=== PATIENT | female | born 1960 | race Caucasian/White ===

== ENCOUNTER 2016-05-22 10:38 | Day surgery (SDC) | payer BC ==
[~2016-05-22 10:38] MED LIST: Buffered Lidocaine 1% SYR 3ML* 3 ML/SYR SYRINGE INTRADERM ONE; Famotidine IV* 10 MG/ML 2 ML (20 mg) IV ONE; Levalbuterol 0.63MG/3ML NEB INH ONE
[2016-05-22] MEDS ORDERED: Levalbuterol 1.25MG/0.5ML NEB ONE ×2 (10:57→14:47)
[2016-05-22] MEDS ORDERED: Famotidine IV* 10 MG/ML 2 ML (20 mg) ONE (10:57)
[2016-05-22] MEDS ORDERED: Dexamethasone IV* 4 MG/ML 1 ML (4 MG) ONE (11:58)
[2016-05-22] MEDS ORDERED: Cisatracurium* 2 MG/ML MDV 10 ML ONE (11:58)
[2016-05-22] MEDS ORDERED: fentaNYL* 50 MCG/ML 2 ML VIAL (100 MCG VIAL) ONE (11:58)
[2016-05-22] MEDS ORDERED: Ondansetron INJ* 2 MG/ML VIAL ONE (11:58)
[2016-05-22] MEDS ORDERED: Lidocaine 2% MPF* 2 ML VIAL ONE (11:58)
[2016-05-22] MEDS ORDERED: Propofol* 10 MG/ML 20 ML BTL IV PUSH ONE (11:58)
[2016-05-22] MEDS ORDERED: Midazolam* 1 MG/ML 5 ML VIAL (5 MG) ONE (11:59)
[2016-05-22] MEDS ORDERED: KETAMINE HCL* 50 MG/ML 10 ML VIAL ONE (11:59)
[2016-05-22] MEDS ORDERED: Phenylephrine IV* 40 MCG/ML 10 ML SYRINGE ONE (14:05)
[2016-05-22] MEDS ORDERED: oxyCODONE/Acetamin 5/325 MG* TAB PO PRN (14:45)
[2016-05-22] MEDS ORDERED: fentaNYL* 50 MCG/ML 2 ML VIAL (100 MCG VIAL) IV PRN (14:45)
[2016-05-22] MEDS ORDERED: Levalbuterol 0.63MG/3ML NEB INH PRN (14:45)
[2016-05-22] MEDS ORDERED: Ondansetron INJ* 2 MG/ML VIAL IV PRN (14:45)
[2016-05-22 15:38] VITALS: BP 111/69
--- NOTE | 2016-05-23 03:11 | PRO ---
DATE: 05/22/16 - [facility] REFERRING PHYSICIANS: Yvon Chavez; Jae Jones* PROCEDURE: Upper gastrointestinal endoscopy and balloon dilation of esophagus at strictures, midpoints 29 and 20 cm. HISTORY: This 56-year-old woman has been noting recurring difficulty with solid foods over the last month or 2. Last night, she was able to have ravioli and characteristically for breakfast, she has cereal. She ate no lunch yesterday saying that they had friends that they were entertaining. She has a history of a right lung resection superior and middle lobes and then on the left side had radiation at [facility]. 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 Following that, Dr Venegas has dilated her approximately 6 times with balloons, most recently late December 2015. The interval had been lengthening. His reports were reviewed immediately before the case. ENDOSCOPIST: Teja Fountain MD MEDICATIONS: General anesthesia per Dr. Melendez. FINDINGS: She is a chronically ill-appearing woman, in no overt distress at this time. She is positioned left side down after general anesthesia was induced. EGD: Larynx - limited views showed no overt inflammation, but she was intubated. Esophagus - easily entered and the upper sphincter at 14 to 15 appeared unremarkable. There was no overt stricture there and no mass. First abnormality was encountered about 18 or 19 and there was then a stricture with a minimal amount of neovascularization extending down to about 23. The scope, however, passed through this area snugly easily. There was then a second area appearing strictured with neovascularity from 28 to 31 or 32. The esophagus was then normal down to 39 or 40. There was not an overt stricture at the EG junction. There were no erosions. Stomach - generally normal contours and mucosa and rugal folds. There was some erythema diffusely in the cardia and fundus. There were no erosions and no bleeding. The antrum appeared normal. Duodenum - the pylorus, bulb, and second through fourth portions appear normal with Clara's gland nodules. The scope was then brought back to the EG junction and a lsedmjn-tie-ddius dilator inserted 12 to 15 mm. This was used at the EG junction because of some uncertainty about the visual assessment there. Three inflations to 15 mm resulted in no overt stretching. Scope was then pulled back to 29 where again 3 inflations resulted in no overt stretching, although this area clearly had radiation changes. Finally at 20 cm, the 12 to 15 balloon was inflated and the 15 level did create a small split at a 2 o'clock and 5 o'clock orientation. There is no overt bleeding. The scope was then repositioned into the stomach and a 15 to 18 mm dilator inserted. Inflations at the EG junction 16.5 and 18 resulted in no rents as the area appeared normal. Pulling back to the 29 cm level at 16.5mm inflation did result in a mild split as desired. Pulling back to the 20 to 21 cm level was done and this balloon inflated to 15 mm with no change in the previous split achieved. Inflation to 16.5 was then done and the split was extended slightly but appearing as desired. The patient tolerated this well. IMPRESSION: 1. Proximal gastric erythema - presumably from radiation. 2. Esophageal stricturing at 2 levels dilated at 16.5 and dysphagia should be palliated. Strictures were not that tight at baseline in that the scope could be passed and only the proximal stricture at 21 was split with a 15 mm dilation. The patient will be having a complete upper dental extraction in about a month and she was warned that this may change her ability to monitor mastication. Her was listening carefully as this was discussed and the point made several times as it is indeed somewhat remarkable that she has not presented to the emergency room with an esophageal impaction at this point. Given the successful lengthening of intervals over the last several dilating sessions, it was suggested she return to the office in November for reevaluation. [id number]/[facility] #: [id number] PAM
== END 2016-05-22 17:00 | disposition home or self-care (01) ==
LOC: OR 10:38
PROVIDERS: ATTEND Internal Medicine Gastroenterology
DX: K22.2 Esophageal obstruction (principal); R13.10 Dysphagia, unspecified; C34.90 Malignant neoplasm of unspecified part of unspecified bronchus or lung; F17.210 Nicotine dependence, cigarettes, uncomplicated
CPT/HCPCS: A9270-GY; J1100; J2250; J2405; J2704; J3010

== ENCOUNTER 2016-11-06 10:55 | Day surgery (SDC) | payer BC ==
[2016-11-06] MEDS ORDERED: Buffered Lidocaine 0.9% SYRIN* 5 ML/SYR SYRINGE ONE (10:59)
[2016-11-06] MEDS ORDERED: fentaNYL* 50 MCG/ML 2 ML VIAL (100 MCG VIAL) ONE ×2 (12:18→13:29)
[2016-11-06] MEDS ORDERED: Midazolam* 1 MG/ML 5 ML VIAL (5 MG) ONE (12:18)
[2016-11-06] MEDS ORDERED: Lidocaine 2% PF * 5 ML VIAL ONE (12:23)
[2016-11-06] MEDS ORDERED: Dexamethasone IV* 4 MG/ML 1 ML (4 MG) ONE (12:23)
[2016-11-06] MEDS ORDERED: DiMENhydriNATE IV* 50 MG/ML VIAL ONE (12:23)
[2016-11-06] MEDS ORDERED: Ondansetron INJ* 2 MG/ML VIAL ONE (12:23)
[2016-11-06] MEDS ORDERED: Propofol* 10 MG/ML 20 ML BTL IV PUSH ONE (12:23)
[2016-11-06] MEDS ORDERED: Succinylcholine* 20 MG/ML 10 ML VIAL ONE (12:23)
[2016-11-06] MEDS ORDERED: Phenylephrine IV* 40 MCG/ML 10 ML SYRINGE ONE (13:26)
[2016-11-06] MEDS ORDERED: DiMENhydriNATE IV* 50 MG/ML VIAL IV PUSH PRN (13:55)
[2016-11-06] MEDS ORDERED: HYDROcodone/ACETAMIN 5-325 MG* 1 TAB PO PRN (13:55)
[2016-11-06 14:45] VITALS: BP 116/85
--- NOTE | 2016-11-07 16:16 | PRO ---
DATE: 11/06/16 REFERRING PHYSICIANS: Martínez Cisneros ([place], [place]). PROCEDURE: Upper gastrointestinal endoscopy and balloon dilation of esophagus at 2 levels - 21 and 29 cm. INDICATION: This 56-year-old woman has had relapsing solid food dysphagia after intense radiation t reatment to the chest. After her last dilation, she was much better. She had all of her teeth extracted and now has dentur es. She says they work moderately well and she does use them for meals. There was no abrupt change in her eating status with that, but about a month ago she began having trouble once again with meat s, bread, etc. Her appetite is good and weight steady. She did just have a biopsy along her right jaw. Informed consent was obtained with her present. The rationale for continuing on with dilati ons was reviewed. She has a follow up with Dr. Jones in about a month. ENDOSCOPIST: Dr. Fountain. TRIGONOMETRY TUTOR: Radha Delcid MD. FINDINGS: She is a chronically ill-appearing woman of average b nadeen weight. Her lungs show rales at the left lung base, but she is not short of breath and air excu rsion is just slightly diminished. EGD: The patient was placed under anesthesia by Dr. Delcid. Larynx - intubated. Esophagus - easily entered and radiation defined vascular changes and patchy scarring and blanching are seen, especially at around 21 to 22.5, and then 28.5 to 31. Other areas do have some mild jensen ges. There is some radiation vascular change at the EG junction at about 39 to 40, though there is no stricture there. There are no peptic changes. Stomach - generalized erythema, especially in the prepyloric antrum, no ulcer seen. There is some sp lotchy, wispy bleeding. Duodenum - the pylorus is patent and the proximal bulb normal. The distal bulb has a coarse and linda thematous texture and the second to third portion is deformed and a little bit stiff. It seems to b e a change compared to the prior exam. The fourth portion of the duodenum appears normal. The scope was then brought back to about the 35 cm level and a 15 to 18 balloon dilator was threaded into the lumen. It was inflated at the 29 cm level to 15 mm diameter, creating a slight spilt. Th e inflation was then made 4 atmospheres, estimated at 16 mm and the split was slightly extended and appeared optimal for the desired effect. The balloon was then withdrawn to the upper esophageal location and inflated to 15 with no effect, 1 6.5 with a mild split, and then to an estimated 17 mm with slight extension. The patient tolerated all of this well. IMPRESSION: 1. Prepyloric gastritis. 2. Deformed duodenum, no symptoms relevant to this. 3. Esophageal strictures - now dilated slightly more and a routine followup will be anticipated in June 2017. [id number]/[facility] #: [id number]
== END 2016-11-06 15:00 | disposition home or self-care (01) ==
LOC: OR 10:55
PROVIDERS: ATTEND Internal Medicine Gastroenterology
PROC: 0D728ZZ Dilation of Middle Esophagus, Via Natural or Artificial Opening Endoscopic (ICD-10-PCS; principal; 2016-11-06 12:15)
DX: K22.2 Esophageal obstruction (principal); R13.10 Dysphagia, unspecified; K29.60 Other gastritis without bleeding; Z85.118 Personal history of other malignant neoplasm of bronchus and lung; F17.200 Nicotine dependence, unspecified, uncomplicated
CPT/HCPCS: J0330; J1100; J1240; J2250; J2405; J2704; J3010

== ENCOUNTER 2017-04-30 10:20 | Day surgery (SDC) | payer MEDICARE, BC ==
[~2017-04-30 10:20] MED LIST changes: +Buffered Lidocaine 0.9% SYRIN* 5 ML/SYR SYRINGE INTRADERM ONE; -Buffered Lidocaine 1% SYR 3ML* 3 ML/SYR SYRINGE INTRADERM ONE; -Levalbuterol 0.63MG/3ML NEB INH ONE; +Levalbuterol 0.63MG/3ML NEB* UNIT OF USE INH ONE; +Metoclopramide TAB* 10 MG PO ONE
[2017-04-30] MEDS ORDERED: Famotidine IV* 10 MG/ML 2 ML (20 mg) ONE (10:28)
[2017-04-30] MEDS ORDERED: Metoclopramide TAB* 10 MG ONE (10:28)
[2017-04-30] MEDS ORDERED: Levalbuterol 1.25MG/0.5ML NEB ONE (10:28)
[2017-04-30] MEDS ORDERED: Buffered Lidocaine 0.9% SYRIN* 5 ML/SYR SYRINGE ONE (10:29)
[2017-04-30] MEDS ORDERED: Propofol* 10 MG/ML 20 ML BTL IV PUSH ONE (11:29)
[2017-04-30] MEDS ORDERED: fentaNYL* 50 MCG/ML 2 ML VIAL (100 MCG VIAL) ONE (11:29)
[2017-04-30] MEDS ORDERED: Mivacurium Chloride* 20 MG/10 ML VIAL IV ONE (11:29)
[2017-04-30] MEDS ORDERED: KETAMINE HCL* 50 MG/ML 10 ML VIAL ONE (11:29)
[2017-04-30] MEDS ORDERED: Midazolam* 1 MG/ML 10 ML VIAL (10 MG) ONE (11:29)
[2017-04-30] MEDS ORDERED: Lidocaine 2% PF * 5 ML VIAL ONE (11:29)
[2017-04-30] MEDS ORDERED: Dexamethasone IV* 4 MG/ML 1 ML (4 MG) ONE (11:29)
[2017-04-30] MEDS ORDERED: Ondansetron INJ* 2 MG/ML VIAL ONE (11:29)
[2017-04-30] MEDS ORDERED: Ondansetron INJ* 2 MG/ML VIAL IV PRN (12:07)
[2017-04-30] MEDS ORDERED: Levalbuterol 0.63MG/3ML NEB* UNIT OF USE INH PRN (12:07)
[2017-04-30] MEDS ORDERED: fentaNYL* 50 MCG/ML 2 ML VIAL (100 MCG VIAL) IV PRN (12:07)
[2017-04-30] MEDS ORDERED: Atropine 1MG/ML INJ* 1 ML VIAL ONE (12:52)
[2017-04-30 14:29] VITALS: BP 104/72
--- NOTE | 2017-04-30 23:11 | PRO ---
DATE: 04/30/17 [facility] REFERRING PRACTITIONER: SANDRA Vogt, [place], [place] * PROCEDURE: Upper gastrointestinal endoscopy and balloon dilation 3 locations with TTS balloon. INDICATION: This 57-year-old woman with a history of lung cancer, treated with radiation, about a month ago began experiencing dysphagia again. She had converted from marginal dentition to dentures within the last year. She has maintained her weight. Outpatient meds include ibuprofen, Lortab, meloxicam, and ropinirole. There are no cardiac meds. Informed consent was obtained with an opportunity for questions, special concerns, and her was present. ENDOSCOPIST: Dr. Fountain. ANESTHESIOLOGIST: Dr. Melendez after endotracheal intubation. FINDINGS: She is a slender, somewhat chronically ill-appearing woman in no overt distress. Her heart rate is regular without murmur and breath sounds normal in the upper lobes. EGD: Larynx - ET tube in place. Esophagus - easily entered and the mucosa has some minimal scarring in neovascularity, but is patent and the diagnostic scope goes through easily with no sense of restriction whatsoever. The lumen appears clearly fairly sizeable. Some scarring is evident especially from about 28 to 30. The lower esophagus has a little bit of neovascularity, but there is no stenosis and no erosions. Stomach - generally normal mucosa in the cardia, fundus, body, and antrum. Duodenum - normal pylorus, bulb and second and third portion. The scope was brought back to the fundus and a 5-cm 15 to 18-mm TTS balloon inserted. It was then inflated to 16.5 and 18 at the EG junction 37 to 38. No mucosal split was created. Inflations were then done at 29 to 30, initially 15 mm with no dilating effect and then 16.5 (4.5 atmospheres) and with the larger diameter about 15 seconds into the inflation, bradycardia to about 30 occurred. The balloon was deflated and the bradycardia lasted 15 to 20 seconds. It was prompt resumption of a pulse of 75 to 80. Another inflation at that same level to the same extent was done as there had been some mucosal split achieved and it was desired to get a full benefit. Again, there was some bradycardia, but this time just down to about 40. The initial dilation was about 20 to 25 seconds. The scope was brought back to 20 to 21 cm and an inflation done to 15 and then 16.5. No rent occurred there, although there was the impression of a mild dilating effect. The scope was brought back down into the stomach and the inflation repeated at the 30 cm level. At this time, bradycardia only went down to about 65. There was no madie bleeding with the final dilation. IMPRESSION: 1. Esophageal stricture - dilated with effect at 29 to 30 cm appearing c/w prior result 2. Bradycardia - experienced for the first time today. The patient is on no cardiac meds. It is felt this is a self-limited vasovagal response. [id number]/[facility] #: [id number] [facility]
== END 2017-04-30 14:10 | disposition home or self-care (01) ==
LOC: OR 10:20
PROVIDERS: ATTEND Internal Medicine Gastroenterology
DX: K22.2 Esophageal obstruction (principal); R00.1 Bradycardia, unspecified; R13.10 Dysphagia, unspecified; K21.9 Gastro-esophageal reflux disease without esophagitis; I42.9 Cardiomyopathy, unspecified; I07.1 Rheumatic tricuspid insufficiency; C34.10 Malignant neoplasm of upper lobe, unspecified bronchus or lung; Z72.0 Tobacco use; Z88.1 Allergy status to other antibiotic agents
CPT/HCPCS: A9270-GY; J0461; J1100; J2250; J2405; J2704; J3010

== ENCOUNTER 2017-11-23 10:21 | Day surgery (SDC) | payer MEDICARE, BC ==
[~2017-11-23 10:21] MED LIST changes: -Famotidine IV* 10 MG/ML 2 ML (20 mg) IV ONE; -Levalbuterol 0.63MG/3ML NEB* UNIT OF USE INH ONE; -Metoclopramide TAB* 10 MG PO ONE
[2017-11-23] MEDS ORDERED: Atracurium* 10 MG/ML 10 ML VIAL ONE (12:36)
[2017-11-23] MEDS ORDERED: Midazolam* 1 MG/ML 5 ML VIAL (5 MG) ONE (12:36)
[2017-11-23] MEDS ORDERED: fentaNYL* 50 MCG/ML 2 ML VIAL (100 MCG VIAL) ONE (12:36)
[2017-11-23] MEDS ORDERED: Propofol* 10 MG/ML 20 ML BTL IV PUSH ONE (12:36)
[2017-11-23] MEDS ORDERED: EPHEDrine (Pressors)* 50 MG/ML VIAL ONE (13:43)
[2017-11-23] MEDS ORDERED: Phenylephrine IV* 40 MCG/ML 10 ML SYRINGE ONE (13:43)
[2017-11-23] MEDS ORDERED: Glycopyrrolate IV* 0.2 MG/ML 1 ML VIAL ONE (13:47)
[2017-11-23] MEDS ORDERED: Neostigmine Methylsulfate* 1 MG/ML 10 ML VIAL (1 mg/ml) ONE (13:47)
[2017-11-23] MEDS ORDERED: fentaNYL* 50 MCG/ML 2 ML VIAL (100 MCG VIAL) IV PRN (13:57)
[2017-11-23] MEDS ORDERED: Ondansetron INJ* 2 MG/ML VIAL IV PRN (13:57)
[2017-11-23] MEDS ORDERED: Naloxone* 0.4 MG/ML 1 ML VIAL IV PRN (13:57)
[2017-11-23 14:20] VITALS: BP 112/61
--- NOTE | 2017-11-24 07:42 | PRO ---
DATE: 11/23/17 - ENDO REFERRING PHYSICIANS: Dr. Jae Jones; SANDRA Duenas, [place], [place] * PROCEDURE: Upper gastrointestinal endoscopy and balloon dilation, multi-level esophageal narrowing - procedure limited by extreme bradycardia during dilation at the 23 to 24 cm insertion level. INDICATION: This 57-year-old woman comes in complaining of increasing dysphagia. When she was seen for pre-anesthetic assessment, no dizziness or palpitations or syncope was elicited. She was noted to have lost 10 to 12 pounds of weight and had a chest x-ray, labs, and saw her primary oncologist and no obvious progression of tumor or other process was found. She was cleared to go for anesthesia assistance for dilation. ENDOSCOPIST: Dr. Fountain. ANESTHESIOLOGIST: Dr. Caceres. ANESTHESIA: ET tube and general anesthesia. FINDINGS: She is a chronically ill-appearing woman, smelling strongly of tobacco. She is thin. Breath sounds were diminished, but present bilaterally. EGD: Larynx - symmetric with ET tube in place. Esophagus - easily traversed top to bottom with a little bit of viscous resistance, but the scope does not create any dilation anywhere. The EG junction is at 40. Stomach - generally normal folds in the cardia, fundus and body. The antrum was quite erythematous to the punctate erythema. There are no erosions and no bleeding. The pylorus appears normal. Duodenum - the bulb appears normal, but at the apex, there is moderate erythema of Clara's folds. Raymond of the duodenum appears restricted and fair amount of probing and maneuvering was required to get into the second and then third portions of the duodenum. No obvious mass is present, but the area does seem restricted especially right at the bulb apex. The esophageal dilator was then inserted at 15 to 18-mm size. Esophageal dilations - at 38 to 40 cm, 15-mm created no split, so a 16.5 was chosen and this likewise created no split. At 28 to 29 cm, 15-mm created slight split about triangulated around the lumen. At 23 to 24, a 15-mm inflation resulted in asystole and so it was stopped at about 12 seconds. After a couple of minutes, position just a centimeter to higher similar inflation also resulted in marked bradycardia. There were some splits seen that were fairly substantial at about 22 cm. A final dilation straddling the cricopharyngeus at 19 to 20 cm did not result in any bradycardia nor any mucosal split. IMPRESSION: 1. Duodenal restriction and Clara's gland hypertrophy. 2. Gastritis. 3. Esophageal stricture - in the [id number]-[id number] esophagus - dilated to 15-mm, which was the limit of bradycardia. Lumen is not occluded and well-chewed mechanically soft diet should be able to traverse. 4. Bradycardia - marked and this is a limiting factor in her esophageal treatment. 5. Weight loss - cause unclear, but heavy smoking on an ongoing basis contributes in all likelihood. [id number]/[facility] #: [id number] [facility]PITALMack
== END 2017-11-23 14:46 | disposition home or self-care (01) ==
LOC: OR 10:21
PROVIDERS: ATTEND Internal Medicine Gastroenterology
DX: K22.2 Esophageal obstruction (principal); R00.1 Bradycardia, unspecified; R13.10 Dysphagia, unspecified; K29.60 Other gastritis without bleeding; R63.4 Abnormal weight loss; K31.5 Obstruction of duodenum; Z72.0 Tobacco use; J44.9 Chronic obstructive pulmonary disease, unspecified; I73.9 Peripheral vascular disease, unspecified; I42.5 Other restrictive cardiomyopathy; Z85.118 Personal history of other malignant neoplasm of bronchus and lung; M19.90 Unspecified osteoarthritis, unspecified site; R00.2 Palpitations; R94.31 Abnormal electrocardiogram [ECG] [EKG]
CPT/HCPCS: J2250; J2704; J2710; J3010

== ENCOUNTER → 2018-05-17 11:15 | Day surgery (SDC) | payer MEDICARE, BC ==
[~2018-05-17 11:15] MED LIST changes: +Atracurium* 10 MG/ML 10 ML VIAL ONE; +Lactated Ringers 1000 ML Bag* 1,000 ML IV SCH; +Lidocaine 2% PF * 5 ML VIAL ONE; +Midazolam* 1 MG/ML 2 ML VIAL (2 MG) ONE; +Naloxone* 0.4 MG/ML 1 ML VIAL IV PRN; +Ondansetron INJ* 2 MG/ML VIAL IV PRN; +Phenylephrine INJ* 10 MG/ML 1 ML VIAL (10 MG) ONE; +Propofol* 10 MG/ML 20 ML BTL ONE; +fentaNYL* 50 MCG/ML 2 ML VIAL (100 MCG VIAL) IV PRN; +fentaNYL* 50 MCG/ML 2 ML VIAL (100 MCG VIAL) ONE
[2018-05-17 16:08] VITALS: BP 103/71
--- NOTE | 2018-05-17 21:02 | PRO ---
DATE: 05/17/18 [facility] REFERRING PRACTITIONER: Martínez Joel, PA , [place], [place] * PROCEDURE: Upper gastrointestinal endoscopy and Savary dilation of esophageal stricture, 11 through 14 mm. INDICATION: This 58-year-old woman treated for lung cancer has a post- treatment stricture in the mid esophagus. She has undergone a sequence of dilations approximately every 6 months. About a year ago during dilation with a balloon, she had profound bradycardia and then 6 months ago essentially asystole for over 10 seconds. This had been discussed with her cardiology office and no bradycardia had ever been documented in her past history in other circumstances including many Holter monitors. A trial off of digoxin this past fall caused increased sensation of tachycardia. If further events were to occur, holding her diltiazem prior to endoscopic procedures is a consideration. This was not employed today as there was going to be a different technique for dilation. ENDOSCOPIST: Dr. Fountain. ANESTHESIA: Dr. Taylor. FINDINGS: The patient was positioned left side down. She was intubated. EGD: Larynx - tube in place. Esophagus - easily entered and there was a scarred and somewhat pale esophagus, though the scope transited easily to the EG junction at 40. There was no hang- up of the scope. Stomach - some punctate erythema. The antrum was normal. Duodenum - generally normal. A Savary wire was placed into the distal gastric body and kept in place during scope withdrawal. An 11-mm Savary was then passed over the wire. There was no clear resistance. There was some surface tension and adhesion between the wire and the dilator during withdrawal. An endoscopic recheck showed a minimal amount of blood at about 27 to 28 cm. There was no overt split. The wire was still in place. A 12.8 Savary was then placed. There was an increase in the amount of bleeding superficially from the mucosa with multiple small areas of slight intramucosal hemorrhage, but again no definitive split. A third dilation to 14 mm was done. This likewise resulted in a stepwise increase in the amount of bleeding and intramucosal blood seen. No bradycardia was observed. Procedure was terminated. IMPRESSION: 1. Esophageal stricture - now dilated to 14 mm with Savary dilators ( progressed less than anticipated) 2. History of bradycardia - not evident today. [id number]/[facility] #: [id number] [facility]
== END | disposition home or self-care (01) ==
LOC: OR 11:15
PROVIDERS: ATTEND Internal Medicine Gastroenterology
DX: K22.2 Esophageal obstruction (principal); R13.10 Dysphagia, unspecified; R00.1 Bradycardia, unspecified; I48.91 Unspecified atrial fibrillation; J44.9 Chronic obstructive pulmonary disease, unspecified
CPT/HCPCS: J2250; J2704; J3010

== ENCOUNTER → 2019-02-01 11:29 | Day surgery (SDC) | payer MEDICARE, BC ==
[~2019-02-01 11:29] MED LIST changes: -Atracurium* 10 MG/ML 10 ML VIAL ONE; -Buffered Lidocaine 0.9% SYRIN* 5 ML/SYR SYRINGE INTRADERM ONE; +Buffered Lidocaine 1% SYRIN* 1 ML/SYRINGE INTRADERM ONE; +KETAMINE HCL* 50 MG/ML 10 ML VIAL ONE; +Levalbuterol 1.25MG/0.5ML NEB ONE; -Lidocaine 2% PF * 5 ML VIAL ONE; +Midazolam* 1 MG/ML 5 ML VIAL (5 MG) ONE; -Naloxone* 0.4 MG/ML 1 ML VIAL IV PRN; -Ondansetron INJ* 2 MG/ML VIAL IV PRN; -Phenylephrine INJ* 10 MG/ML 1 ML VIAL (10 MG) ONE; -fentaNYL* 50 MCG/ML 2 ML VIAL (100 MCG VIAL) IV PRN
[2019-02-01 16:26] VITALS: BP 125/69
--- NOTE | 2019-02-01 21:49 | PRO ---
DATE: 02/01/19 [facility] REFERRING PRACTITIONERS: DAVID Duenas , Jae Jones* PROCEDURE: Upper gastrointestinal endoscopy and Savary dilation to 14 mm. INDICATION: This 58-year-old woman treated for lung cancer and known to have a mid to high esophageal stricture has had increasing trouble with pills and food. Last week, she was started on amoxicillin and prednisone for respiratory symptoms she has regularly. On a day-by-day basis, she has had improvement or malaise or improvement once again and today was feeling reasonably well. She was not in any overt distress. It was elected to proceed with monitored anesthesia care. ENDOSCOPIST: Teja Fountain MD. ANESTHESIOLOGIST: Dr. Rosario. FINDINGS: She is a chronically ill-appearing woman with somewhat indurated neck , though without any focal mass. Breath sounds are diminished. She had used her inhaler this morning. She is positioned at 45 degrees and ketamine, Versed, and propofol were administered as per Dr. Rosario. The adult scope was inserted and the patient intubated. EGD: Larynx - not seen. Esophagus - easily entered and there was smooth stricture seemingly maximal for 24 or 26 as noted before. There was no focal shelf or ring. There was no mass. The scope passed through easily. EG junction was not focally strictured. Stomach - moderate erythema throughout. There was no blood. Duodenum - the pylorus and bulb appeared normal. There were focal swollen erythematous folds. The second portion of the duodenum was entered. There was some restriction and in that position, the third portion of the duodenum was seen tangentially, but not freely entered. There did appear to be some restriction. The Savary wire was placed on the gastric antrum. Dilations with 12.8 and then 14 was done. Small splits were seen in the 25 to 26 cm area. There was some question of using a higher dilator or a balloon, though the patient was seemingly more congested and it was elected to stop at this time as this was the level reached in May 2018. IMPRESSION: 1. Esophageal stricture - dilated to 14 mm Savary. 2. Gastric erythema - moderately intense. 3. Duodenal restriction. 4. Bradycardia - during the 14-mm Savary dilation, some slowing down to 60 and then a sinus pause occurred, but there was no prolonged severe bradycardia. 5. COPD - currently exacerbated from apparent upper respiratory infection. [id number]/[facility] #: [id number] MTDD
== END | disposition home or self-care (01) ==
LOC: OR 11:29
PROVIDERS: ATTEND Internal Medicine Gastroenterology
DX: K22.2 Esophageal obstruction (principal); J44.9 Chronic obstructive pulmonary disease, unspecified; I10 Essential (primary) hypertension; R00.0 Tachycardia, unspecified; R13.10 Dysphagia, unspecified; R94.31 Abnormal electrocardiogram [ECG] [EKG]; R06.00 Dyspnea, unspecified; I42.9 Cardiomyopathy, unspecified; I73.9 Peripheral vascular disease, unspecified; F17.210 Nicotine dependence, cigarettes, uncomplicated; Z79.899 Other long term (current) drug therapy
CPT/HCPCS: A9270-GY; J2250; J2704; J3010

== ENCOUNTER 2019-06-13 15:21 | Observation (INO) | payer MEDICARE, BC ==
[2019-06-13] MEDS ORDERED: Lidocaine 1% MPF ** 5 ML VIAL INJ ONE (15:36)
[2019-06-13] MEDS ORDERED: NS 0.9% 1000 ML** 1,000 ML IV ONE (15:36)
--- NOTE | 2019-06-13 15:55 | ED ---
Shortness of Breath - HPI Summary HPI Summary: The patient is a 59 year-old female presenting to [facility] with a chief complaint of shortness of breath and lung pain this afternoon. She reports that she was upstairs having a biopsy performed on a left lung mass. An hour after the procedure, she noted shortness of breath and lung pain with a CXR reading of moderate left pneumothorax. She is noted to have 30% lung capacity on the right with history of lung adenocarcinoma with radiation therapy and chemotherapy. She was referred to the ED for further treatment. She was placed on 15L O2 with improvement in her breathing. She endorses a cough, which aggravates the pain. Past medical history significant for anemia, angina, cardiomegaly, coronary artery disease, hypotension, peripheral vascular disease, leaky valve, SVT, tricuspid regurgitation, asthma, COPD, PNA season allergies, sleep apnea, GERD. Current smoker, daily EtOH, marijuana use. Medications reviewed. Allergies noted. - History of Current Complaint Chief Complaint: EDShortnessOfBreath Time Seen by Provider: 06/13/19 15:30 Hx Obtained From: Patient Onset/Duration: Gradual Onset, Still Present Current Severity: Moderate Dyspnea At: Rest Aggravating Factors: Deep Breaths, Other - cough Associated Signs & Symptoms: Cough (Nonproductive), Chest Pain Unrelated to Cough - "lung pain" - Allergy/Home Medications Allergies/Adverse Reactions: Allergies Allergy/AdvReac Type Severity Reaction Status Date / Time Sulfa (Sulfonamide Allergy Severe Hives Verified 06/13/19 15:27 Antibiotics) loxapine AdvReac Severe Rash And Verified 06/13/19 15:27 Itching SEASONAL Allergy Intermediate ITCHY, Uncoded 06/13/19 15:27 ALLERGIES/ENVIRONMENTAL WATERY EYES, SNEEZING, CONGESTION Home Medications: Home Medications Azithromycin TAB* [Zithromax TAB (Z-JUSTIN) 250 mg #6 tabs] 2 tab PO .TODAY, THEN 1 DAILY 06/13/19 [History Confirmed 06/13/19] Digoxin TAB* [Lanoxin TAB*] 0.25 mg PO EVERY OTHER DAY 06/13/19 [History Confirmed 06/13/19] Diltiazem TAB* [Cardizem 30 MG Tab*] 30 mg PO BID 06/13/19 [History Confirmed ] LoraTADine TAB(NF) [Claritin 10 MG TAB(NF)] 10 mg PO DAILY PRN 06/13/19 [ History Confirmed 06/13/19] Nystatin SUSPENSION* 500,000 units PO DAILY 06/13/19 [History Confirmed 06/13/19 ] Ropinirole TAB* [Requip TAB*] 0.25 mg PO BEDTIME 06/13/19 [History Confirmed 08/27] Zolpidem TAB* [Ambien TAB*] 5 - 10 mg PO BEDTIME PRN 06/13/19 [History Confirmed 06/13/19] guaiFENesin ER TAB [Mucinex*] 600 mg PO BID PRN 06/13/19 [History Confirmed 08/27] PMH/Surg Hx/FS Hx/Imm Hx Endocrine/Hematology History: Reports: Hx Anemia - occassionally Denies: Hx Anticoagulant Therapy, Hx Diabetes, Hx Thyroid Disease Cardiovascular History: Reports: Hx Angina, Hx Cardiomegaly, Hx Coronary Artery Disease, Hx Hypotension, Hx Peripheral Vascular Disease, Hx Syncope, Hx Valvular Heart Disease - has leaky valve, has SVT, Other Cardiovascular Problems /Disorders - CARDIOMYPATHY, TRICUSPID REGUR. LOW BP//DR. STILES FOLLOWS Denies: Hx Hypercholesterolemia, Hx Hypertension, Hx Myocardial Infarction, Hx Pacemaker/ICD Respiratory History: Reports: Hx Asthma, Hx Chronic Bronchitis, Hx Chronic Obstructive Pulmonary Disease (COPD), Hx Lung Cancer, Hx Pneumonia, Hx Seasonal Allergies, Hx Sleep Apnea - NO MACHINE, Other Respiratory Problems/Disorders - O2 at home GI History: Reports: Hx Gastroesophageal Reflux Disease - REPORTS HAD SURGERY FOR, Hx Hiatal Hernia - HX OF-, Other GI Disorders - ESOPHAGEAL STRETCHES DUE TO DAMAGE FROM RADIATION History: Denies: Hx Dialysis, Hx Renal Disease, Other Problems/Disorders Musculoskeletal History: Reports: Hx Arthritis - BACK, NECK AND SHOULDERS, Hx Back Problems, Hx Bursitis, Hx Tendonitis - SHOULDERS, Other Musculoskeletal History - BONE SPURS IN NECK AND BACK Sensory History: Reports: Hx Contacts or Glasses - glasses, Other Sensory Impairments - Upper Dentures Denies: Hx Cataracts, Hx Glaucoma, Hx Hearing Aid Opthamlomology History: Reports: Hx Contacts or Glasses - glasses, Other Sensory Impairments - Upper Dentures Denies: Hx Cataracts, Hx Glaucoma Neurological History: Reports: Hx Headaches, Other Neuro Impairments/Disorders - PAIN CLINIC PT-[facility] Denies: Hx Dementia, Hx Seizures Psychiatric History: Reports: Hx Anxiety - HX OF, Hx Depression, Other Psychiatric Issues/Disorders - panic attacks Denies: Hx Panic Disorder, Hx Substance Abuse - Cancer History Cancer Type, Location and Year: LUNG Hx Chemotherapy: Yes - LAST 2015 Hx Radiation Therapy: Yes - 2009 & 2010,2014 - Surgical History Surgical History: Yes Surgery Procedure, Year, and Place[place] [facility] [place] MIDDLE [place] [facility] [place] [facility] [place] [facility] [place]. [place] [facility] [place] Oophorect[place]. TONSILLECTOMY A CHILD. stomach surgery for gerd . 06/2014 [place] [facility] [place] FEEDING TU[place] [facility] [place]. [id number] SEVERAL ESOPHAGEAL STRETCHING WITH B[place]OON [place]IT[place] [facility] [place]. [place]OP[place]AL ST[place] AND LATER [place] [facility] [place] GA[place] F[place] [facility] [place] Anesthesia Reactions: Yes - SLOWED HEART RATE-HAPPENED SURING PROCEDURE WITH POLLO Infectious Disease History: No Infectious Disease History: Denies: Hx Hepatitis, Hx Human Immunodeficiency Virus (HIV), Traveled Outside the [place] in Last 30 Days - Family History Known Family History: Positive: Cardiac Disease - Social History Alcohol Use: Daily Alcohol Amount: 3 glasses a day Hx Substance Use: Yes Substance Use Type: Reports: Marijuana Substance Use Comment - Amount & Last Used: 06/11/2019 Hx Tobacco Use: Yes Smoking Status (MU): Current Every Day Smoker Type: Cigarettes Amount Used/How Often: 1 PPD Length of Time of Smoking/Using Tobacco: 41 YEARS Have You Smoked in the Last Year: Yes Review of Systems Positive: Chest Pain - "lung pain" Positive: Shortness Of Breath, Cough All Other Systems Reviewed And Are Negative: Yes Physical Exam - Summary Physical Exam Summary: Constitutional: Well-developed, Well-nourished, Alert. (+) Mild respiratory distress Skin: Warm, Dry HENT: Normocephalic; Atraumatic Eyes: Conjunctiva normal Neck: Musculoskeletal ROM normal neck. (-) JVD, (-) Stridor, (-) Tracheal deviation Cardio: Rhythm regular, rate tachycardic, Heart sounds normal; Intact distal pulses; The pedal pulses are 2+ and symmetric. Radial pulses are 2+ and symmetric. (-) Murmur Pulmonary/Chest wall: Slightly decreased breath sounds in the left lung. (+) Mild respiratory distress, (-) Wheezes, (-) Rales Abd: Soft, (-) tenderness, (-) Distension, (-) Guarding, (-) Rebound Musculoskeletal: (-) Edema Lymph: (-) Cervical adenopathy Neuro: Alert, Oriented x3 Psych: Mood and affect Normal Triage Information Reviewed: Yes Vital Signs On Initial Exam: Initial Vitals BP 148/115 06/13/19 15:24 Vital Signs Reviewed: Yes Procedures - Procedure Summary Procedure Summary: Dr. Henriquez from surgery placed a percutaneous catheter for indicated left-sided pneumothorax. - Sedation Patient Received Moderate/Deep Sedation with Procedure: No Diagnostics - Vital Signs Vital Signs Temp Pulse Resp BP Pulse Ox 06/13/19 15:31 25 06/13/19 15:28 127 92 06/13/19 15:25 100 F 126 14 148/115 93 06/13/19 15:24 148/115 - Laboratory Result Diagrams: 06/13/19 15:28 06/13/19 15:28 Lab Statement: Any lab studies that have been ordered have been reviewed, and results considered in the medical decision making process. - Radiology CXR Radiology Interpretation Completed By: Radiologist Summary of Radiographic Findings: Impression: The left lung is mostly reexpanded after a pleural pigtail catheter placement. ED physician has reviewed this report. Re-Evaluation - Re-Evaluation First Eval Re-Evaluation Time: 16:30 Change: Improved Comment: Percutaneous catheter placement performed by surgery, patient improving Course/Dx - Course Course Of Treatment: Patient is a 59 year-old female who has extensive cardiac/ pulmonary and lung adenocarcinoma history presenting with shortness of breath and lung pain after having a biopsy performed on a left lung mass this afternoon, and documented moderate pneumothorax on CXR. Physical exam is significant for slightly decreased breath sounds in the left lung, tachycardic rate with normal rhythm, and mild respiratory distress. I spoke with Dr. Henriquez from surgery, who will come to the ED. Patient administered fluids, Lidocaine, and Fentanyl. Dr. Henriquez placed a percutaneous catheter for indicated left-sided pneumothorax. Blood work obtained, revealing MCV of 108, MCH of 38, BUN of 5. CXR reveals re-expansion of the left lung following procedure. Dr. Henriquez has accepted the patient for admission. Patient agreeable with plan. - Diagnoses Provider Diagnoses: Pneumothorax, left - Physician Notifications Discussed Care of Patient With: Bertha Henriquez - surgery Time Discussed With Above Provider: 15:35 Instructed by Provider To: Other - I discussed the patient's case with Dr. Henriquez, and she will come see the patient in the ED. She will place the catheter. Dr. Henriquez accepts the patient for admission. Discharge ED - Sign-Out/Discharge Documenting (check all that apply): Patient Departure - Patient accepted for admission by Dr. Henriquez. - Discharge Plan Condition: Stable Disposition: ADMITTED TO [facility] Referrals: Session Martínez HERNANDEZ [Primary Care Provider] - - Attestation Statements Document Initiated by Scribe: Yes Documenting Scribe: Samira Lyle Provider For Whom Guadalupeibe is Documenting (Include Credential): Dr. Kam Milligan DO Scribe Attestation: ISamira scribed for Dr. Kam Milligan DO on 06/13/19 at 1701. Status of Scribe Document: Ready
[2019-06-13 16:19] LABS: INR 0.92 (0.82-1.09)
[2019-06-13 16:21] LABS: ABS Eosinophils 0.1 10^3/ul (0-0.6); ABS Lymphocytes 1.5 10^3/ul (1.0-4.8); ABS Monocytes 0.6 10^3/ul (0-0.8); Eosinophil % 1.3 %; Hematocrit 48 % (35-47); Hemoglobin 16.6 g/dL (12.0-16.0); Lymphocyte % 20.6 %; Mean Corpuscular HGB Conc 35 g/dL (31-36); Mean Corpuscular Hemoglobin 38 pg (27-31); Mean Corpuscular Volume 108 fL (80-97); Mean Platelet Volume 7.3 fL (7.4-10.4); Nucleated Red Blood Cells % 0.1; Platelet Count 219 10^3/uL (150-450); Red Blood Count 4.43 10^6 /uL (3.70-4.87); Red Cell Distribution Width 13 % (10-15); White Blood Count 7.1 10^3/uL (3.5-10.8)
[2019-06-13 16:23] LABS: Albumin 4.3 g/dL (3.2-5.2); Albumin/Globulin Ratio 1.5 (1-3); BUN/Creatinine Ratio 8.8 (8-20); Calcium 9.4 mg/dL (8.6-10.3); EGFR African American 132.3 (>60); EGFR Non-African American 109.3 (>60); Globulin 2.9 g/dL (2-4); Potassium 3.6 mmol/L (3.5-5.0); Total Bilirubin 0.8 mg/dL (0.2-1.0); Total Protein 7.2 g/dL (6.4-8.9)
[2019-06-13] MEDS ORDERED: Ondansetron INJ* 2 MG/ML VIAL IV PRN (16:27)
[2019-06-13] MEDS ORDERED: Polyethylene Glycol 3350* 17 GM PACKET PO PRN (16:48)
[2019-06-13] MEDS ORDERED: Zolpidem TAB* 5 MG PO PRN (16:48)
[2019-06-13] MEDS ORDERED: Cetirizine* 10 MG TAB PO PRN (16:48)
[2019-06-13] MEDS ORDERED: HYDROcodone/ACET. 7.5/325 LIQ* 15 ML UDC PO PRN (16:48)
[2019-06-13] MEDS ORDERED: guaiFENesin ER TAB 600 MG PO PRN (16:48)
[2019-06-13] MEDS ORDERED: Albuterol HFA INHALER* 8 gm MDI INH PRN (16:48)
[2019-06-13] MEDS ORDERED: Azithromycin TAB* 250 MG PO SCH (17:00)
[2019-06-13] MEDS ORDERED: Nicotine Lozenge* mini 2 MG LOZNG.MINI MT PRN (17:15)
--- NOTE | 2019-06-13 17:18 | HP ---
H&P (Free Text) History and Physical: DATE OF ADMISSION: 06/13/19 REASON FOR ADMISSION: L Pneumothorax HPI: Zuleima Valencia is a 59 year-old woman with a history of lung cancer s/p lung resection and s/p chemoradiation who underwent lung biopsy today which was complicated by pneumothorax. She was diagnosed with right lung cancer and underwent RML and RLL resection in 2010. There was a recurrence in the mediastinal lymph nodes in 2014 and she underwent radiation. On screening CT thorax this month, she was found to have a left apex lesion and underwent image- guided biopsy today. After the procedure, she developed shortness of breath. She does use 3L NC at baseline. CXR showed moderate L pneumothorax. She was sent to the ED for chest tube. She has otherwise been in her usual state of health except for URI for which she is taking azithromycin (today is last day). She denies chest pain or abdominal pain. She has chronic constipation. She undergoes esophageal dilations by Dr Fountain for dysphagia which is thought to be due to radiation. Denies fevers or chills. PMH: H/o lung cancer, atrial fibrillation, chronic neck and back pain, COPD, tobacco use PSH: Lung resection 2010, mediastinoscopy, fundoplication (for GERD), hysterectomy, port placement, knee arthroscopy, EGD Home Medications Medication Instructions Recorded Confirmed Type Ibuprofen 200 mg PO Q6HR PRN 07/02/17 06/13/19 History Aspirin EC TAB* [Ecotrin EC Low 81 mg PO QAM 08/13/17 06/13/19 History Dose 81 MG*] Spiriva HANDIHALER DEVICE (NF) 2 puff INH QAM 03/17/18 06/13/19 History [Tiotropium Inhaler DEVICE (NF)] Buprenorphine 15 MCG PATCH(NF) 15 mcg TRANSDERM TU 07/25/18 06/13/19 History [Butrans 15 MCG PATCH(NF)] Hydrocodone/Acetaminophen 10 - 15 ml PO .Q6-8H PRN 01/30/19 06/13/19 History [Hydrocodone-Acetamn 7.5-325/15] Polyethylene Glycol 3350* 17 gm PO DAILY PRN 01/31/19 06/13/19 History [Miralax*] Albuterol HFA INHALER* [Ventolin 1 - 2 puff INH Q4H PRN 05/29/19 06/13/19 History HFA Inhaler*] traZODone TAB* [Desyrel TAB*] 50 mg PO BEDTIME 05/29/19 06/13/19 History Azithromycin TAB* [Zithromax TAB 2 tab PO .TODAY, THEN 1 DAILY 06/13/19 History (Z-JUSTIN) 250 mg #6 tabs] Digoxin TAB* [Lanoxin TAB*] 0.25 mg PO EVERY OTHER DAY 06/13/19 06/13/19 History Diltiazem TAB* [Cardizem 30 MG 30 mg PO BID 06/13/19 06/13/19 History Tab*] LoraTADine TAB(NF) [Claritin 10 MG 10 mg PO DAILY PRN 06/13/19 06/13/19 History TAB(NF)] Nystatin SUSPENSION* 500,000 units PO DAILY 06/13/19 06/13/19 History Ropinirole TAB* [Requip TAB*] 0.25 mg PO BEDTIME 06/13/19 06/13/19 History Zolpidem TAB* [Ambien TAB*] 5 - 10 mg PO BEDTIME PRN 06/13/19 06/13/19 History guaiFENesin ER TAB [Mucinex*] 600 mg PO BID PRN 06/13/19 06/13/19 History Allergies Sulfa (Sulfonamide Antibiotics) Allergy (Severe, Verified 06/13/19 15:27) Hives loxapine Adverse Reaction (Severe, Verified 06/13/19 15:27) Rash And Itching SEASONAL ALLERGIES/ENVIRONMENTAL Allergy (Intermediate, Uncoded 06/13/19 15:27) ITCHY, WATERY EYES, SNEEZING, CONGESTION POLLEN, DUST FH: Both parents from lung cancer. She has 3 siblings who are healthy. SH: The patient lives with her . She has been smoking since age 15. At the most, she smoked 2 ppd. She currently smokes 0.5-1 ppd. She drinks 3 glasses of wine each day. She uses marijuana for sleep and appetite about 2 times a week. ROS: 10-point review of systems was obtained. Pertinent positives and negatives in the HPI. PHYSICAL EXAM: Temp Pulse Resp BP Pulse Ox 100 F 122 27 137/83 97 06/13/19 15:25 06/13/19 16:00 06/13/19 16:00 06/13/19 15:55 06/13/19 16:00 General: Mild distress. Appears older than stated age. Head: Normocephalic and atraumatic. Eyes: Pupils equal. No scleral icterus. Mouth: Moist mucous membranes. Neck: Supple. Trachea midline. CV: Tachycardic. Regular rhythm. Respiratory: Decreased air entry on left. Coarse breath sounds on right. Increased work of breathing. Abdomen: Soft, nontender, nondistended. Extremities: Warm. No pedal edema. Skin: Warm and dry. Intact. Neuro: Alert and oriented x3. Moves all extremities equally. Psych: Normal affect. Laboratory Results - last 24 hr 06/13/19 06/13/19 06/13/19 15:28 15:28 15:28 WBC 7.1 RBC 4.43 Hgb 16.6 H Hct 48 H MCV 108 H MCH 38 H MCHC 35 RDW 13 Plt Count 219 MPV 7.3 L Neut % (Auto) 69.7 Lymph % (Auto) 20.6 Isabella % (Auto) 8.1 Eos % (Auto) 1.3 Baso % (Auto) 0.3 Absolute Neuts (auto) 5.0 Absolute Lymphs (auto) 1.5 Absolute Monos (auto) 0.6 Absolute Eos (auto) 0.1 Absolute Basos (auto) 0.0 Absolute Nucleated RBC 0.0 Nucleated RBC % 0.1 INR (Anticoag Therapy) 0.92 Sodium 137 Potassium 3.6 Chloride 99 L Carbon Dioxide 32 Anion Gap 6 BUN 5 L Creatinine 0.57 Est GFR ( Amer) 132.3 Est GFR (Non-Af Amer) 109.3 BUN/Creatinine Ratio 8.8 Glucose 111 H Calcium 9.4 Total Bilirubin 0.80 AST 15 ALT 14 Alkaline Phosphatase 66 Total Protein 7.2 Albumin 4.3 Globulin 2.9 Albumin/Globulin Ratio 1.5 CXR: Moderate L PTX IMPRESSION: 59F with left pneumothorax after biopsy. 8Fr catheter placed (see separate procedure note), and patient returned to baseline O2 requirements. Work of breathing also improved. I will plan to admit her overnight for observation given h/o chronic hypoxic respiratory failure. The patient is adamant about leaving tomorrow. Follow up xray ordered for the morning. If there is no air leak, will try placing to water seal in the morning then possible removal. However, she may need to be discharged with chest tube. PLAN: Admit for observation. Chest tube to suction -20 mmHg overnight. CXR If no air leak in the morning, place to water seal. If f/u CXR continues to show inflated lung, will remove tube. Regular diet Chronic hypoxic respiratory failure- continue home Spiriva and albuterol. Titrate oxygen to 3L O2 to maintain O2 sat >90% A fib- continue home diltiazem, digoxin, and ASA 81. Chronic back and neck pain- continue home buprenorphine patch, Vicodin elixir, trazodone, cyclobenzaprine, ibuprofen. Tobacco use- nicotine patch Dysphagia due to esophageal stricture- stable. DVT ppx- SCDs Code status- Full code CC:
--- NOTE | 2019-06-13 17:20 | OP ---
Operative Report - Blank - Operative Report Date of Operation: 06/13/19 Note: PRE-OP DX: Iatrogenic L PTX POST-OP DX: Same PROCEDURE: Placement of 8Fr catheter on left SURGEON: Bertha Henriquez MD ANESTHESIA: Local (3 ml lidocaine 1%) EBL: Minimal INDICATION: Zuleima Valencia is a 59 year-old woman with a history of COPD, history of lung cancer, and current smoker who was sent to the ED for left pneumothorax following left lung biopsy. The pneumothorax was discovered after she developed worsening shortness of breath. Written consent was obtained from the patient for placement of chest catheter. DESCRIPTION: The patient was sitting upright on the stretcher. The left chest was prepped and draped in the usual sterile fashion. Lidocaine 1% was injected into the skin at the planned tube site. A skin nishi was made in the skin over the third rib at the mid-clavicular line. The needle and catheter were advanced over the rib while aspirating with a syringe. Once there was return of air in the syringe , the needle was withdrawn. The catheter was advanced to the hub then connected to the Pleur-Evac and placed to -20 mmHg suction. The catheter was secured with 3-0 nylon and covered with a Tegederm. The patient tolerated the procedure well. Post-procedure CXR showed re-expansion of the left lung.
[2019-06-13] MEDS ORDERED: Buprenorphine 15 MCG PATCH(NF) 15 MCG/HR PATCH (15 MG TOTAL) TRANSDERM SCH (19:00)
[2019-06-13] MEDS: Ketorolac INJ* 15 MG/ML 1 ML VIAL IV PUSH PRN (20:43)
[2019-06-13] MEDS ORDERED: Ropinirole TAB* 0.5 MG TAB PO SCH (21:00)
[2019-06-13] MEDS ORDERED: traZODone TAB* 50 MG TAB PO SCH (21:00)
[2019-06-13] MEDS: Diltiazem TAB* 30 MG PO SCH (21:53)
[2019-06-13] MEDS: HYDROcodone/ACET. 7.5/325 LIQ* 15 ML UDC PO PRN (21:55)
[2019-06-14] MEDS: HYDROcodone/ACET. 7.5/325 LIQ* 15 ML UDC PO PRN ×2 (04:00→12:38)
[2019-06-14] MEDS: Ketorolac INJ* 15 MG/ML 1 ML VIAL IV PUSH PRN (04:03)
--- NOTE | 2019-06-14 08:44 | PN ---
Progress Note - Progress Note Date of Service: 06/14/19 Note: Patient complains of left sided chest wall pain from the tube. She reports dyspnea after activity, and she commonly has more SOB in the morning. She denies abdominal pain or nausea. She is asking to go home today.
[2019-06-14] MEDS: Diltiazem TAB* 30 MG PO SCH (08:54)
--- NOTE | 2019-06-14 08:54 | PN ---
Progress Note - Progress Note Date of Service: 06/14/19 Note: Patient complains of left chest wall pain from the tube. She has dyspnea after activity. She usually has SOB in the morning. She denies abdominal pain or nausea. Afebrile. Vital Signs - 12 hr Temp Pulse Resp BP Pulse Ox 06/14/19 08:25 97.9 F 84 18 91/60 99 06/14/19 08:00 18 06/14/19 06:17 20 06/14/19 04:00 20 06/14/19 03:49 98 F 92 18 111/55 98 06/14/19 02:05 98 06/14/19 01:00 20 06/13/19 23:00 98.2 F 96 18 130/70 06/13/19 21:58 86 18 95 06/13/19 21:55 20 General: NAD, sitting up in bed. CV: RRR Respiratory: Crackles at left base. Equal air entry on both sides. No accessory muscle use. No air leak. Chest tube site is clean and dry. Abdomen: Soft, nontender, nondistended. Extremities: Warm. No pedal edema. Neuro: Alert and oriented x3. Moves all extremities equally. CXR- small apical ptx which is unchanged from yesterday. Tube appears kinked. A&P 59F with iatrogenic L PTX s/p chest tube placement. No air leak. -Water seal tube. Tube may be kinked but lung expansion appears same as yesterday after tube placed. -Repeat CXR later this morning. If lung is still expanded, will remove tube. -Continue home pain medications. -Activity as tolerated. -DVT ppx: SCDs -Anticipate d/c to home later today if tube is removed.
[2019-06-14] MEDS ORDERED: Nystatin SUSPENSION* 100000 UNITS/ML 5 ML UDC PO SCH (09:00)
[2019-06-14] MEDS ORDERED: SPIRIVA Respimat* (tiotropium) 2.5 mcg/inh Inhaler INH SCH (09:00)
[2019-06-14] MEDS ORDERED: Aspirin EC TAB* 81 MG TAB.EC PO SCH (09:00)
[2019-06-14] MEDS ORDERED: Azithromycin TAB* 250 MG PO SCH (10:00)
[2019-06-14] MEDS ORDERED: Digoxin TAB* 0.25 MG PO SCH (10:00)
[2019-06-14 11:12] VITALS: BP 99/58
--- NOTE | 2019-06-16 11:06 | DS ---
ADMIT DATE: 06/13/19 DISCHARGE DATE: 06/14/19 REASON FOR ADMISSION: Left pneumothorax PATIENT CONDITION AT DISCHARGE: Stable PHYSICAL FINDINGS AT DISCHARGE: Breathing comfortably on 3L NC without accessory muscle use. Crepitus around chest tube site. 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 She developed a left pneumothorax after the procedure and was sent to the ED. In the ED, an 8Fr chest tube was placed. The chest tube was kept to suction. The patient was admitted to the surgical service. Pain was controlled with her home regimen. Her home medications were continued. On 06/14, there was no air leak. The morning CXR showed a small apical pneumothorax which was stable from admission. The tube was placed to water seal. The repeat CXR was stable. The tube was removed. She did develop crepitus immediately around the chest tube site. Oxygen requirements were stable at 3L NC, which is her baseline requirement. Repeat CXR after tube removal again appeared stable. She was discharged home in stable condition. DISPOSITION: Home DISCHARGE INSTRUCTIONS: Monitor for shortness of breath. Call the office if you develop worsening shortness of breath or report to the nearest ED. The dressing may be removed after [address] Follow up with Dr Jones as scheduled.
== END 2019-06-14 14:36 | disposition home or self-care (01) ==
LOC: ED 15:21 → SSU 16:28
PROVIDERS: ADMIT Surgery Surgical Critical Care; ATTEND Surgery Surgical Critical Care
DX: J93.9 Pneumothorax, unspecified (principal); J44.9 Chronic obstructive pulmonary disease, unspecified; F17.210 Nicotine dependence, cigarettes, uncomplicated; I25.10 Atherosclerotic heart disease of native coronary artery without angina pectoris; I51.7 Cardiomegaly; I38 Endocarditis, valve unspecified; J45.909 Unspecified asthma, uncomplicated; K21.9 Gastro-esophageal reflux disease without esophagitis; I73.9 Peripheral vascular disease, unspecified; R05 Cough; I95.9 Hypotension, unspecified; R06.02 Shortness of breath; Z85.118 Personal history of other malignant neoplasm of bronchus and lung; Z88.2 Allergy status to sulfonamides; Z79.899 Other long term (current) drug therapy
CPT/HCPCS: 36415; 71045; 80053; 85025; 85610; 94640; 96374; 96375; 96376; 99285; A9270-GY; G0378; J1885; J3535

== ENCOUNTER 2019-06-14 18:02 | Inpatient (IN) | payer MEDICARE, BC ==
[2019-06-14] MEDS ORDERED: KETAMINE HCL* 50 MG/ML 10 ML VIAL IV ONE (18:50)
[2019-06-14] MEDS ORDERED: Lidocaine 1% INJ* 10 MG/ML 30 ML SDV ONE (18:58)
--- NOTE | 2019-06-14 19:10 | ED ---
HPI Cardiac - HPI Summary HPI Summary: Patient is a 59 y/o F presenting to [facility] for concerns of pneumothorax recurrence. The patient had a lung biopsy yesterday and she experience collapse of her left lung. Chest tube was placed at [facility] and she was admitted. Patient had chest tube removed around 1400 today, 06/14/19 and was discharged around 1530. However, she has been SOB since discharge and she has been experiencing CP and a puffing sensation of her left arm, left chest, and left throat. Home medications and allergies are reviewed. - History of Current Complaint Chief Complaint: EDGeneral Stated Complaint: DIFFICULTY BREATHING PER PT Time Seen by Provider: 06/14/19 18:20 Hx Obtained From: Patient Onset/Duration: Still Present Timing: Constant Current Severity: Severe Pain Intensity: 9 Pain Scale Used: 0-10 Numeric Chest Pain Location: Left Anterior Associated Signs and Symptoms: Positive: Chest Pain, Shortness of Breath, Other : - puffing sensation of her left arm, left chest, and left throat - Additional Pertinent History Primary Care Physician: BILLY - Allergy/Home Medications Allergies/Adverse Reactions: Allergies Allergy/AdvReac Type Severity Reaction Status Date / Time Sulfa (Sulfonamide Allergy Severe Hives Verified 06/14/19 18:13 Antibiotics) loxapine AdvReac Severe Rash And Verified 06/14/19 18:13 Itching SEASONAL Allergy Intermediate ITCHY, Uncoded 06/14/19 18:13 ALLERGIES/ENVIRONMENTAL WATERY EYES, SNEEZING, CONGESTION PMH/Surg Hx/FS Hx/Imm Hx Endocrine/Hematology History: Reports: Hx Anemia - occassionally Denies: Hx Anticoagulant Therapy, Hx Diabetes, Hx Thyroid Disease Cardiovascular History: Reports: Hx Angina, Hx Cardiomegaly, Hx Coronary Artery Disease, Hx Hypotension, Hx Peripheral Vascular Disease, Hx Syncope, Hx Valvular Heart Disease - has leaky valve, has SVT, Other Cardiovascular Problems /Disorders - HX OF LEFT SIDE PNEUMOTHORAX. SOB, SUBCUTAEOUS AIR Denies: Hx Hypercholesterolemia, Hx Hypertension, Hx Myocardial Infarction, Hx Pacemaker/ICD Respiratory History: Reports: Hx Asthma, Hx Chronic Bronchitis, Hx Chronic Obstructive Pulmonary Disease (COPD), Hx Lung Cancer, Hx Pneumonia, Hx Seasonal Allergies, Hx Sleep Apnea - NO MACHINE, Other Respiratory Problems/Disorders - O2 at home GI History: Reports: Hx Gastroesophageal Reflux Disease - REPORTS HAD SURGERY FOR, Hx Hiatal Hernia - HX OF-, Other GI Disorders - ESOPHAGEAL STRETCHES DUE TO DAMAGE FROM RADIATION History: Denies: Hx Dialysis, Hx Renal Disease, Other Problems/Disorders Musculoskeletal History: Reports: Hx Arthritis - BACK, NECK AND SHOULDERS, Hx Back Problems, Hx Bursitis, Hx Tendonitis - SHOULDERS, Other Musculoskeletal History - BONE SPURS IN NECK AND BACK Sensory History: Reports: Hx Contacts or Glasses, Other Sensory Impairments - Upper Dentures Denies: Hx Cataracts, Hx Glaucoma, Hx Hearing Aid Opthamlomology History: Reports: Hx Contacts or Glasses, Other Sensory Impairments - Upper Dentures Denies: Hx Cataracts, Hx Glaucoma Neurological History: Reports: Hx Headaches, Other Neuro Impairments/Disorders - PAIN CLINIC [facility] Denies: Hx Dementia, Hx Seizures Psychiatric History: Reports: Hx Anxiety, Hx Depression, Other Psychiatric Issues/Disorders - panic attacks Denies: Hx Panic Disorder, Hx Substance Abuse - Cancer History Cancer Type, Location and Year: LUNG Hx Chemotherapy: Yes - LAST 2015 Hx Radiation Therapy: Yes - 2009 & 2010,2014 - Surgical History Surgery Procedure, Year, and Place: [place] [facility] [place]PPER AND MIDDLE [place] [facility] [place] [facility] [place] [facility] [place]. [place]CT[place] [facility] [place] Oophorectomy 1998. TONSILLECTOMY A CHILD. stomach surgery for gerd . 06/2014 [place]ON[place]OS[place] [facility] [place]. 10/2014 FEEDING TUBE PLACEMENT, [facility] - REMOVED. [id number] SEVERAL ESOPHAGEAL STRETCHING WITH BALLOON DILITATION, [facility]. 2014 ESOPHOGEAL STENT INSERTED AND LATER REMOVED[place] [facility] [place] 01/2016 REPAIR GASTRIC FISTULA[place] [facility] [place] Hx Anesthesia Reactions: Yes - SLOWED HEART RATE-HAPPENED SURING PROCEDURE WITH POLLO - Immunization History Immunizations Up to Date: Yes Infectious Disease History: No Infectious Disease History: Denies: Hx Hepatitis, Hx Human Immunodeficiency Virus (HIV), Traveled Outside the [place] in Last 30 Days - Family History Known Family History: Positive: Cardiac Disease - Social History Alcohol Use: Occasionally Alcohol Amount: 3 glasses a day Hx Substance Use: Yes Substance Use Type: Reports: Marijuana Substance Use Comment - Amount & Last Used: 06/11/2019 Hx Tobacco Use: Yes Smoking Status (MU): Current Every Day Smoker Type: Cigarettes Amount Used/How Often: 1 PPD Length of Time of Smoking/Using Tobacco: 41 YEARS Have You Smoked in the Last Year: Yes Review of Systems Positive: Chest Pain Positive: Shortness Of Breath Skin: Other - puffing sensation of her left arm, left chest, and left throat All Other Systems Reviewed And Are Negative: Yes Physical Exam - Summary Physical Exam Summary: Constitutional: Well-developed, Well-nourished, Alert. (-) Distressed Skin: Warm, Dry HENT: Normocephalic; Atraumatic Eyes: Conjunctiva normal Neck: Musculoskeletal ROM normal neck. (-) JVD, (-) Stridor, (-) Tracheal deviation Cardio: Rhythm regular, rate normal, Heart sounds normal; Intact distal pulses; Radial pulses are 2+ and symmetric. (-) Murmur Pulmonary/Chest wall: Subcutaneous emphysema over left chest wall into the neck and back, lung auscultation limited due to crackles. Abd: Soft, (-) tenderness, (-) Distension, (-) Guarding, (-) Rebound Musculoskeletal: (-) Edema Lymph: (-) Cervical adenopathy Neuro: Alert, Oriented x3 Psych: Mood and affect Normal Triage Information Reviewed: Yes Vital Signs On Initial Exam: Initial Vitals Temp Pulse Resp BP Pulse Ox 99.4 F 112 24 105/55 100 06/14/19 18:08 06/14/19 18:08 06/14/19 18:08 06/14/19 18:08 06/14/19 18:08 Vital Signs Reviewed: Yes Procedures - Procedure Summary Procedure Summary: Dr. Altamirano placed chest tube, Dr. Thornton administered conscious sedation. - Sedation Patient Received Moderate/Deep Sedation with Procedure: Yes Are You The Provider Who Administered The Sedation: Yes Name of Provider Whom Sedated Patient: Kristopher Thornton - Procedural Sedation/Analgesia Sedation Course: RT Present, Emergency Airway Equipment Available, Informed Consent Obtained, Time Out Completed, End-tidal Capnography Utilized Adverse Reactions Experienced by Patient: None Mallampati Classification: Class III ASA Classification: Class II: Mild Systemic Disease Pre-Procedural Heart: No Murmur Pre-Procedural Lungs: Other Pre-Procedural Lung Comment: Subcutaneous empysema on left chest wall Comment/Plan of Care: 75mg of ketamine was used (50mg and then 25mg). No complications Provider Procedure Attestation: With My Signature Below, I Attest to have Personally Reviewed and Agree with the Pre-Sedation History and Pre-Service Assessment Update Cleared for Moderate Sedation: Yes Pre-Procedural Diagnosis: left pneumothorax Post-Procedural Diagnosis: left pneumothorax resolved Procedure: left chest tube Estimated Blood Loss: None Specimen(s): None Findings: None Implants/Tubes/Drains Placed: None Diagnostics - Vital Signs Vital Signs Temp Pulse Resp BP Pulse Ox 06/14/19 18:08 99.4 F 112 24 105/55 100 - Laboratory Lab Statement: Any lab studies that have been ordered have been reviewed, and results considered in the medical decision making process. - Radiology CXR Radiology Interpretation Completed By: ED Physician Summary of Radiographic Findings: Subcutaneous emphysema of left chest wall with no obvious pneumothorax, pending official report. Re-Evaluation - Re-Evaluation First Eval Re-Evaluation Time: 19:02 Comment: Chest tube placement to be done. Second Eval Re-Evaluation Time: 19:40 Comment: Chest tube was placed Disposition - Course Course Of Treatment: Patient is here with a left pneumothorax. Patient had a pneumothorax as stated with a chest tube placed. Patient is discharged and had reviewed cumulation of subcutaneous emphysema. Patient had a chest tube placed by surgery after I performed sedation. Patient is admitted to the hospital - Diagnoses Provider Diagnoses: Pneumothorax, left - Physician Notifications Discussed Care Of Patient With: Hamilton Altamirano Time Discussed With Above Provider: 18:47 Instructed by Provider To: Other - 1846 - Dr. Altamirano in ED, patient's case was discussed. Dr. Altamirano will place chest tube, Dr. Thornton will administer conscious sedation. 1939 - Chest tube was placed, patient to be admitted to surgical services. - Critical Care Time Critical Care Time: 30-74 min - 35 minutes CCT Discharge ED - Sign-Out/Discharge Documenting (check all that apply): Patient Departure - ADMIT All imaging exams completed and their final reports reviewed: Yes - Discharge Plan Condition: Stable Disposition: ADMITTED TO [facility] - Billing Disposition and Condition Condition: STABLE Disposition: Admitted to [facility] - Attestation Statements Document Initiated by Scribe: Yes Documenting Scribe: JARROD YANEZ Provider For Whom Scribe is Documenting (Include Credential): KRISTOPHER THORNTON MD Scribe Attestation: JARROD Cook, scribed for KRISTOPHER THORNTON MD on 06/21/19 at 1905. Scribe Documentation Reviewed: Yes Provider Attestation: The documentation as recorded by the scribe, JARROD YANEZ accurately reflects the service I personally performed and the decisions made by me, KRISTOPHER THORNTON MD Status of Juan José Document: Viewed
--- NOTE | 2019-06-14 20:19 | PN ---
Progress Note - Progress Note Date of Service: 06/14/19 Note: Brief History and Physical update S: 59 yo female discharged earlier today after placement of a 8Fr chest tube by Dr. Henriquez for Left pneumothorax. She was experiencing increasing subcutaneous air and shortness of breath at home and returned to the ED. She was seen by Dr. Altamirano and chest xray obtained. O: Vital Signs - 8 hr 06/14/19 06/14/19 18:08 19:42 Temperature 99.4 F 96.3 F Pulse Rate 112 Respiratory 24 Rate Blood Pressure 105/55 (mmHg) O2 Sat by Pulse 100 Oximetry PE: per Dr. Altamirano A/P: increased subcutaneous emphysema with recent Left pneumothorax after lung biopsy Chest tube placed by Dr. Altamirano in the ED with assistance from the ED physician, under conscious sedation. She will be admitted to the floor for chest tube management (to wall suction) and repeat xray in the a.m.
[2019-06-14] MEDS ORDERED: Cetirizine* 10 MG TAB PO PRN (20:23)
[2019-06-14] MEDS: Ropinirole TAB* 0.5 MG TAB PO SCH (22:45)
[2019-06-14] MEDS: traZODone TAB* 50 MG TAB PO SCH (22:45)
[2019-06-14] MEDS: HYDROcodone/ACET. 7.5/325 LIQ* 15 ML UDC PO PRN (22:45)
[2019-06-14] MEDS: Zolpidem TAB* 10 MG PO PRN (22:45)
[2019-06-14] MEDS: Albuterol HFA INHALER* 8 gm MDI INH PRN (22:50)
[2019-06-14] MEDS: Diltiazem TAB* 30 MG PO SCH (22:52)
[2019-06-14] MEDS: guaiFENesin ER TAB 600 MG PO PRN (23:21)
--- NOTE | 2019-06-15 04:46 | OP ---
DATE OF OPERATION: 06/14/19 - ROOM #338 DATE OF : 64 SURGEON: Hamilton Altamirano MD [employer] SUPERVISOR: None. ANESTHESIA: 1% lidocaine plain with IV sedation administered by Dr. Higginbotham, emergency room physician. Please see separate documentation for amounts. PRE-OP DIAGNOSIS: Left pneumothorax, status post percutaneous lung biopsy. POST-OP DIAGNOSIS: Left pneumothorax, status post percutaneous lung biopsy. OPERATIVE PROCEDURE: Insertion of a left-sided 28-Rwandan thoracostomy tube. ESTIMATED BLOOD LOSS: Minimal. COMPLICATIONS: None. DRAINS: A 28-Rwandan chest tube. SPECIMENS: None. WOUND CLASSIFICATION: I. BRIEF HISTORY: Ms. Zuleima Valencia is a 59-year-old woman who underwent a left percutaneous lung biopsy yesterday here at [facility] [place] for evaluation of an abnormal lung nodule noted on a screening CT scan. Unfortunately, she developed a left pneumothorax and presented to the emergency room yesterday. An 8-Rwandan percutaneous left pneumothorax catheter was inserted at that time and she was admitted and kept overnight on suction. On today's chest x-ray, the lung appeared to be expanded. There was no further leak and the tube was removed. She was discharged home, however, but later this afternoon she called back to the office complaining of significant amount of swelling in her left arm and anterior chest and neck that was crepitant and also she was having trouble breathing. She was instructed to present to the emergency room immediately by calling 911 and coming in an ambulance. On being seen in the emergency room, she was somewhat tachycardic and her oxygen saturations were holding and she was visibly short of breath. A chest x -ray showed significant amount of subcutaneous air and probably a small pneumothorax. After review of her recent history and findings in the emergency room tonight, a decision has been made to proceed with placement of a larger chest tube to adequately decompress the left chest cavity and treat appropriately the pneumothorax. The procedure was discussed with the patient and her , the risks of, but not limited to bleeding, infection, intrathoracic injury including injury to the great vessels, heart and lung were all explained. In addition, there were risks of anesthesia and discomfort were also explained. FINDINGS: Small left pneumothorax decompressed with placement of the chest tube. DESCRIPTION OF PROCEDURE: Written informed consent was obtained, the left chest was marked with indelible ink. No antibiotics were administered. The left anterior and lateral chest were prepped and draped in the usual sterile fashion. Time-out verification was completed. Lidocaine 1% was infiltrated at about the 7th and 8th rib space lateral and just below the mammary fold and an oblique incision was made and carried down to the anterior surface of the rib. Using blunt dissection, the pleural space was then entered over the superior aspect of the rib using a blunt Ana. There was a small atkinson of air. I placed a finger and the pleural space was free. A #28-Rwandan chest tube was then placed and directed superiorly to about 18 cm. There was condensation noted on the tube. It was secured to the skin in several places with 0 silk sutures and placed to Pleur-evac 20 cm of suction. An occlusive Vaseline gauze dressing was then placed and covered with occlusive 4x4 and tape. The patient tolerated the procedure well. Postprocedure chest x-ray showed the catheter to be in good position with the lung almost completely expanded with obviously continued significant amount of subcutaneous air. [id number]/CPS #: [id number] [facility]ENTER[facility]
[2019-06-15] MEDS: HYDROcodone/ACET. 7.5/325 LIQ* 15 ML UDC PO PRN ×4 (05:16→19:13)
[2019-06-15] MEDS: Morphine INJ* 4 MG/ML 1 ML SYRINGE (NEW SYRINGE VERSION) IV PRN ×2 (08:16→15:00)
[2019-06-15] MEDS: Nystatin SUSPENSION* 100000 UNITS/ML 5 ML UDC PO SCH (09:15)
[2019-06-15] MEDS: guaiFENesin ER TAB 600 MG PO PRN (09:15)
[2019-06-15] MEDS: SPIRIVA Respimat* (tiotropium) 2.5 mcg/inh Inhaler INH SCH (09:15)
[2019-06-15] MEDS: Diltiazem TAB* 30 MG PO SCH ×2 (09:15→21:02)
[2019-06-15] MEDS: Aspirin EC TAB* 81 MG TAB.EC PO SCH (09:15)
--- NOTE | 2019-06-15 09:42 | PN ---
Progress Note - Progress Note Date of Service: 06/15/19 Note: Some pain at chest tube, but tolerable. She denies shortness of breath this morning. She denies abdominal pain and is tolerating a regular diet. She has not gotten out of bed yet. Vital Signs - 12 hr Temp Pulse Resp BP Pulse Ox 06/15/19 09:12 18 06/15/19 08:16 18 06/15/19 08:00 18 06/15/19 07:44 97.9 F 89 18 91/62 99 06/15/19 05:17 19 06/15/19 05:16 19 06/15/19 03:24 98.0 F 96 17 93/52 98 06/14/19 23:59 98.8 F 113 17 105/64 99 06/14/19 22:56 20 06/14/19 22:45 20 06/14/19 22:30 98.4 F 102 20 122/73 99 06/14/19 21:46 98.5 F 100 22 114/92 99 General: No acute distress. CV: Regular rate and rhythm. Respiratory: Crepitus over the left chest and shoulder. Bilateral breath sounds. No accessory muscle use on 3 L nasal cannula which is her baseline. Positive air leak. Serosanguineous fluid in the Pleur-evac. Neuro: Alert and oriented 3. Moves all extremities equally. CXR- small left ptx, unchanged. Subcutaneous air is unchanged. A&P 59F with left pneumothorax after lung biopsy. Patient was discharged yesterday but returned with shortness of breath and worsening subcutaneous air. Air leak this morning. I discussed with the patient that the tube likely will need to stay on suction for up to a couple days. There is also a chance that she will require transfer for thoracic surgery if the air leak does not resolve. Continue -20 suction for today. May come off suction for bathroom or ambulation. Plan for x-ray in the morning. Regular diet. Continue home pain regimen.
[2019-06-15] MEDS: Polyethylene Glycol 3350* 17 GM PACKET PO PRN (13:43)
[2019-06-15] MEDS: Albuterol HFA INHALER* 8 gm MDI INH PRN (21:01)
[2019-06-15] MEDS: Ropinirole TAB* 0.5 MG TAB PO SCH (21:02)
[2019-06-15] MEDS: traZODone TAB* 50 MG TAB PO SCH (22:07)
[2019-06-16] MEDS: Zolpidem TAB* 10 MG PO PRN ×2 (00:37→22:53)
[2019-06-16] MEDS: Ketorolac INJ* 15 MG/ML 1 ML VIAL IV PUSH PRN ×3 (05:49→17:54)
[2019-06-16] MEDS: Aspirin EC TAB* 81 MG TAB.EC PO SCH (08:26)
[2019-06-16] MEDS: HYDROcodone/ACET. 7.5/325 LIQ* 15 ML UDC PO PRN (08:26)
[2019-06-16] MEDS: Cetirizine* 10 MG TAB PO SCH (08:27)
[2019-06-16] MEDS: Digoxin TAB* 0.25 MG PO SCH (08:28)
[2019-06-16] MEDS: Diltiazem TAB* 30 MG PO SCH ×2 (08:29→21:33)
[2019-06-16] MEDS: Nystatin SUSPENSION* 100000 UNITS/ML 5 ML UDC PO SCH (08:29)
[2019-06-16] MEDS: SPIRIVA Respimat* (tiotropium) 2.5 mcg/inh Inhaler INH SCH (08:31)
[2019-06-16] MEDS: Albuterol HFA INHALER* 8 gm MDI INH PRN (08:32)
[2019-06-16] MEDS ORDERED: Digoxin TAB* 0.25 MG PO SCH (09:00)
--- NOTE | 2019-06-16 10:46 | PN ---
Progress Note - Progress Note Date of Service: 06/16/19 Note: No acute events overnight. Pain from chest tube is tolerable. Tolerating regular diet and denies nausea or abdominal pain. Vital Signs - 12 hr Temp Pulse Resp BP Pulse Ox 06/16/19 08:28 78 06/16/19 08:26 18 06/16/19 08:00 18 06/16/19 07:19 99.1 F 93 18 130/67 98 06/16/19 03:41 98.2 F 93 16 90/65 99 06/15/19 23:13 98.1 F 86 16 88/55 98 NAD. Sitting up and appears comfortable. Breathing comfortably with 3L NC Air leak present. Small amount of serosanguinous fluid from chest tube. A&P 59F with L ptx after L lung biopsy. Persistent air leak Continue chest tube to -20 mm hg suction. 3L NC (home o2 requirement). Anticipate that the patient will be here through the weekend to keep the chest tube to suction. If there is a persistent air leak by next week, may need to transfer to hospital with thoracic surgery.
[2019-06-16] MEDS ORDERED: Nicotine* 4MG (FRUIT FLAVOR) GUM PO PRN (10:50)
[2019-06-16] MEDS: Nicotine PATCH 21 MG/24 HR* PATCH TRANSDERM SCH (11:46)
--- NOTE | 2019-06-16 15:10 | PN ---
Progress Note - Progress Note Date of Service: 06/16/19 SOAP: Subjective: []Breathing is better then it had been. Pain from chest tube controlled. Still as SQ air. Hydrocodone Bitart/Acetaminophen (Nortab 7.5/325 Liq*) 15 ml PO Q4H PRN PRN Reason: PAIN - MODERATE Last Admin: 06/16/19 08:26 Dose: 15 ml Albuterol (Ventolin Hfa Inhaler*) 2 puff INH Q4H PRN PRN Reason: SHORTNESS OF BREATH Last Admin: 06/16/19 08:32 Dose: 2 puff Aspirin (Aspirin Ec Tab*) 81 mg PO QAM [facility] Last Admin: 06/16/19 08:26 Dose: 81 mg Buprenorphine (Butrans 15 Mcg Patch(Nf)) 15 mcg TRANSDERM [facility] [place] Cetirizine HCl (Zyrtec*) 10 mg PO DAILY [facility] Last Admin: 06/16/19 08:27 Dose: 10 mg Digoxin (Lanoxin Tab*) 0.25 mg PO DAILY [facility] Last Admin: 06/16/19 08:28 Dose: 0.25 mg Diltiazem HCl (Cardizem Tab*) 30 mg PO BID [facility] Last Admin: 06/16/19 08:29 Dose: 30 mg Guaifenesin (Mucinex*) 600 mg PO EVERY OTHER DAY [facility] Ketorolac Tromethamine (Toradol Inj*) 15 mg IV PUSH Q6H PRN PRN Reason: PAIN - MILD Last Admin: 06/16/19 11:48 Dose: 15 mg Morphine Sulfate (Morphine Inj (Syringe)*) 4 mg IV Q2H PRN PRN Reason: PAIN - SEVERE Last Admin: 06/15/19 15:00 Dose: 4 mg Nicotine (Nicotine Patch 21 Mg/24 Hr*) 1 patch TRANSDERM DAILY@0800 [facility] Last Admin: 06/16/19 11:46 Dose: 1 patch Nicotine Polacrilex (Nicotine Gum*) 4 mg PO Q2H PRN PRN Reason: CRAVING Nystatin (Nystatin Suspension*) 500,000 units PO DAILY [facility] Last Admin: 06/16/19 08:29 Dose: 500,000 units Pharmacy Profile Note (Nicotine Patch Removal Note*) 1 note PATCH OFF 2100 [facility] Polyethylene Glycol/Electrolytes (Miralax (17 Gm Dose [place])) 17 gm PO DAILY PRN PRN Reason: CONSTIPATION Last Admin: 06/15/19 13:43 Dose: 17 gm Ropinirole HCl (Requip Tab*) 0.25 mg PO BEDTIME GILBERTO Last Admin: 06/15/19 21:02 Dose: 0.25 mg Tiotropium [place] (Spiriva Respimat 2.5 Mcg) 2 puff INH QAM GILBERTO Last Admin: 06/16/19 08:31 Dose: 2 puff Trazodone HCl (Desyrel Tab*) 50 mg PO BEDTIME GILBERTO Last Admin: 06/15/19 22:07 Dose: 50 mg Zolpidem Tartrate (Ambien Tab*) 10 mg PO BEDTIME PRN PRN Reason: SLEEP Last Admin: 06/16/19 00:37 Dose: 10 mg Objective: [] Vital Signs Temp Pulse Resp BP Pulse Ox 99.6 F 90 18 91/65 99 06/16/19 11:24 06/16/19 11:24 06/16/19 11:24 06/16/19 11:24 06/16/19 11:24 HEENT: OM moist, pale. good BS BL, CTA air through chest tube with exhalation SQ air arm and chest wall Assessment: []59 year old history on lung cancer, COPD. New HUSSEIN lung nodule. CT guided biopsy w/o cancer. Complicated by pneumothorax and subcutaneous emphysema. Now full chest tube with continued air leak. Plan: []1. Plan is continued chest tube until air leak seals. 2. Discussed negative biopsy results. 3. Will follow up on Wednesday
[2019-06-16] MEDS ORDERED: Magnesium Hydroxide LIQ* 30 ML UDC PO PRN (18:05)
[2019-06-16] MEDS: Polyethylene Glycol 3350* 17 GM PACKET PO PRN (18:47)
[2019-06-16] MEDS: Ropinirole TAB* 0.5 MG TAB PO SCH (21:34)
[2019-06-16] MEDS: Nicotine Patch Removal NOTE PATCH OFF SCH (21:37)
[2019-06-16] MEDS: diPHENhydraMINE PO* 25 MG PO PRN (22:08)
[2019-06-16] MEDS: traZODone TAB* 50 MG TAB PO SCH (22:53)
[2019-06-17] MEDS: Acetaminophen TAB* 325 MG PO PRN ×2 (06:13→12:18)
[2019-06-17] MEDS: Albuterol HFA INHALER* 8 gm MDI INH PRN ×2 (07:29→22:24)
[2019-06-17] MEDS: Ketorolac INJ* 15 MG/ML 1 ML VIAL IV PUSH PRN (07:33)
[2019-06-17] MEDS: Nicotine PATCH 21 MG/24 HR* PATCH TRANSDERM SCH (07:36)
[2019-06-17] MEDS: SPIRIVA Respimat* (tiotropium) 2.5 mcg/inh Inhaler INH SCH (07:37)
[2019-06-17] MEDS: Nystatin SUSPENSION* 100000 UNITS/ML 5 ML UDC PO SCH (08:41)
[2019-06-17] MEDS: Aspirin EC TAB* 81 MG TAB.EC PO SCH (08:41)
[2019-06-17] MEDS: Diltiazem TAB* 30 MG PO SCH ×2 (08:41→22:23)
[2019-06-17] MEDS: guaiFENesin ER TAB 600 MG PO SCH (08:42)
[2019-06-17] MEDS: Digoxin TAB* 0.25 MG PO SCH (08:42)
[2019-06-17] MEDS: Cetirizine* 10 MG TAB PO SCH (08:42)
--- NOTE | 2019-06-17 11:02 | PN ---
Progress Note - Progress Note Date of Service: 06/17/19 Note: Surgery Progress Note S: Patient is doing well. I discussed her rash with her, which is present on her upper mid abdominal wall, near the tape from her chest tube. She said it itches only a little. She has never had any reaction in the past with taking morphine or percocet. She otherwise is doing well and does not have any complaints. O: Vital Signs: Temp Pulse Resp BP Pulse Ox 98.5 F 99 20 117/72 99 06/17/19 07:27 06/17/19 07:27 06/17/19 07:27 06/17/19 07:27 06/17/19 07:27 Intake & Output 06/16/19 06/17/19 06/17/19 22:59 06:59 14:59 Intake Total 440 0 210 Output Total 700 100 300 Balance -260 -100 -90 Intake: Oral 440 0 210 Output: Urine 700 100 300 Other: Date of Last Bowel 06/16/19 Movement # Bowel Movements 1 Estimated Stool Amount Small Physical exam: Chest- left breath sounds present but coarse, +breath sounds on right, chest tube with serosanguinous fluid in collection chamber. + air leak when patient coughs and speaks A/P: 59 F with left PTX and subcutaneous emphysema after CT guided lung biopsy, with persistent air leak. - Continue to monitor the patient on suction - Patient may require transfer to a center with a thoracic surgeon if air leak persists and if she has a persistent PTX - Will add morphine and percocet as needed for pain, patient does not have a history of an allergy - Suspect that mild rash on abdomen may be a contact dermatitis. As is, she does not have many symptoms and the benadryl has proved helpful
[2019-06-17] MEDS: oxyCODONE/Acetamin 5/325 MG* TAB PO PRN ×2 (15:48→19:57)
--- NOTE | 2019-06-17 19:44 | PN ---
Progress Note - Progress Note Date of Service: 06/17/19 Note: Surgery Progress Note I was called by Buddy, patient's nurse, earlier this evening about concern that the suction was not connected. I confirmed that it should be connected to [id number]. She was concerned that there was not bubbling present in the water seal chamber that would indicate that suction was working. I asked that the Pleurovac chamber be changed and that the dressing on the chest wall be taken down. All of this was done and the patient continued to have an intermittent air leak in the water seal chamber, which was what was present earlier in the morning when I evaluated her. Her O2 sat was 100% on her typical 3 L NC, HR stable and breath sounds present, per Buddy. I clarified with Dr. Altamirano that our Pleurovac systems are now a dry system where you do not hear the bubbling in the water seal chamber while on suction. Any bubbles seen is the result of a disconnected tubing or from an air leak. Therefore, her Pleurovac was functioning normally and the decrease in bubbling is a sign that her air leak is improving. I also ordered a CXR which I reviewed , and it appears stable from her last CXR. I do not see a left PTX, although the apex is difficult to visualize, and she still has subcutaneous air. I spoke with Buddy to clarify this and she will reassure the patient that there is nothing amiss at present with her chest tube.
[2019-06-17] MEDS: Polyethylene Glycol 3350* 17 GM PACKET PO PRN (22:21)
[2019-06-17] MEDS: diPHENhydraMINE PO* 25 MG PO PRN (22:22)
[2019-06-17] MEDS: traZODone TAB* 50 MG TAB PO SCH (22:23)
[2019-06-17] MEDS: Zolpidem TAB* 10 MG PO PRN (22:23)
[2019-06-17] MEDS: Ropinirole TAB* 0.5 MG TAB PO SCH (22:23)
[2019-06-17] MEDS: Nicotine Patch Removal NOTE PATCH OFF SCH (22:25)
[2019-06-18] MEDS: oxyCODONE/Acetamin 5/325 MG* TAB PO PRN ×2 (07:17→18:58)
[2019-06-18] MEDS: Aspirin EC TAB* 81 MG TAB.EC PO SCH (08:51)
[2019-06-18] MEDS: Cetirizine* 10 MG TAB PO SCH (08:51)
[2019-06-18] MEDS: Diltiazem TAB* 30 MG PO SCH ×2 (08:51→21:00)
[2019-06-18] MEDS: Digoxin TAB* 0.25 MG PO SCH (08:51)
[2019-06-18] MEDS: SPIRIVA Respimat* (tiotropium) 2.5 mcg/inh Inhaler INH SCH (08:52)
[2019-06-18] MEDS: Albuterol HFA INHALER* 8 gm MDI INH PRN ×3 (08:53→18:14)
[2019-06-18] MEDS: Nicotine PATCH 21 MG/24 HR* PATCH TRANSDERM SCH (08:57)
[2019-06-18] MEDS: Nystatin SUSPENSION* 100000 UNITS/ML 5 ML UDC PO SCH (10:28)
--- NOTE | 2019-06-18 11:06 | PN ---
Progress Note - Progress Note Date of Service: 06/18/19 Note: Surgery Progress Note S: Patient is sitting up and appears well. She has no complaints. O: Vital Signs - 24 hr 06/17/19 06/17/19 06/17/19 11:24 15:48 16:10 Temperature 98.8 F 98.2 F Pulse Rate 94 91 Respiratory 17 18 18 Rate Blood Pressure 119/58 143/76 (mmHg) O2 Sat by Pulse 99 100 Oximetry 06/17/19 06/17/19 06/17/19 17:33 18:00 19:16 Temperature 98.0 F Pulse Rate 94 88 Respiratory 18 18 18 Rate Blood Pressure 130/73 137/87 (mmHg) O2 Sat by Pulse 100 100 Oximetry 06/17/19 06/17/19 06/17/19 19:57 20:18 22:22 Temperature Pulse Rate Respiratory 20 20 20 Rate Blood Pressure (mmHg) O2 Sat by Pulse Oximetry 06/17/19 06/18/19 06/18/19 23:32 03:53 07:17 Temperature 98.1 F 98.4 F Pulse Rate 92 94 Respiratory 18 18 22 Rate Blood Pressure 113/65 102/69 (mmHg) O2 Sat by Pulse 100 97 Oximetry 06/18/19 06/18/19 06/18/19 07:40 08:00 08:51 Temperature 97.9 F Pulse Rate 82 82 Respiratory 17 17 Rate Blood Pressure 117/62 (mmHg) O2 Sat by Pulse 99 Oximetry Intake & Output 06/17/19 06/18/19 06/18/19 22:59 06:59 14:59 Intake Total 1350 360 Output Total 1400 900 Balance -50 -540 Intake: Oral 950 360 NG Tube Irrigate Amount 400 Output: Chest Tube #1 0 Urine 1400 900 Physical exam: Chest- positive breath sounds bilaterally, slightly coarse on left. Crepitus along upper arm, chest and neck. Chest tube on suction to -20, and no evidence of air leak on and off suction CXR: 06/17- reviewed, small apical left PTX A/P: 59 F with left PTX s/p left lung biopsy, with persistent air leak that appears to be improving. - This morning patient does not appear to have an air leak although she did say she noticed some bubbling herself this morning in the bathroom. It certainly seems improved since yesterday and her subcutaneous emphysema also seems improved. We will continue one more day of suction and likely tomorrow can water seal or clamp her chest tube. - Continue regular diet
[2019-06-18] MEDS: Ketorolac INJ* 15 MG/ML 1 ML VIAL IV PUSH PRN (12:32)
[2019-06-18] MEDS: diPHENhydraMINE PO* 25 MG PO PRN (12:40)
[2019-06-18] MEDS ORDERED: diPHENhydraMINE PO* 25 MG PO PRN (19:20)
[2019-06-18] MEDS: Ropinirole TAB* 0.5 MG TAB PO SCH (21:01)
[2019-06-18] MEDS: Morphine INJ* 2 MG/ML 1 ML SYRINGE (TWO MG - NEW SYRINGE VERSION) IV PRN (21:04)
[2019-06-18] MEDS: Nicotine Patch Removal NOTE PATCH OFF SCH (21:07)
[2019-06-18] MEDS: Zolpidem TAB* 10 MG PO PRN (22:14)
[2019-06-18] MEDS: traZODone TAB* 50 MG TAB PO SCH (22:14)
[2019-06-19] MEDS: oxyCODONE/Acetamin 5/325 MG* TAB PO PRN ×4 (03:54→16:51)
[2019-06-19] MEDS: Nystatin SUSPENSION* 100000 UNITS/ML 5 ML UDC PO SCH (07:45)
[2019-06-19] MEDS: Digoxin TAB* 0.25 MG PO SCH (08:04)
[2019-06-19] MEDS: Aspirin EC TAB* 81 MG TAB.EC PO SCH (08:04)
[2019-06-19] MEDS: Diltiazem TAB* 30 MG PO SCH (08:05)
[2019-06-19] MEDS: Cetirizine* 10 MG TAB PO SCH (08:05)
[2019-06-19] MEDS: SPIRIVA Respimat* (tiotropium) 2.5 mcg/inh Inhaler INH SCH (08:05)
[2019-06-19] MEDS: guaiFENesin ER TAB 600 MG PO SCH (08:05)
[2019-06-19] MEDS: Albuterol HFA INHALER* 8 gm MDI INH PRN (08:05)
[2019-06-19] MEDS: Nicotine PATCH 21 MG/24 HR* PATCH TRANSDERM SCH (08:06)
[2019-06-19] MEDS: Ketorolac INJ* 15 MG/ML 1 ML VIAL IV PUSH PRN (08:06)
--- NOTE | 2019-06-19 12:05 | PN ---
Progress Note - Progress Note Date of Service: 06/19/19 Note: No complaints. Denies SOB. Pain at chest tube is tolerable. Eating regular diet. Denies nausea or abdominal pain. Crepitus in arm, shoulder and left chest improving. Vital Signs - 12 hr Temp Pulse Resp BP Pulse Ox 06/19/19 11:12 98.8 F 98 16 100/62 99 06/19/19 08:04 72 16 06/19/19 08:00 18 06/19/19 07:25 98.3 F 87 18 102/62 98 06/19/19 06:30 17 06/19/19 03:54 18 06/19/19 03:46 98.5 F 88 16 107/58 97 General: NAD CV: RRR Respiratory: Clear to auscultation. No accessory muscle use. Chest tube to suction. No air leak. Minimal serous fluid in Pleura Evac tubing. Neuro: Alert, oriented x3. Moves all extremities equally. A&P 59F with left ptx after lung biopsy. Water seal chest tube. Repeat CXR this afternoon. Potentially remove tube after repeat CXR. Activity as tolerated. Regular diet. Dr Jones following for f/u of lung biopsy results Dispo: home later today or tomorrow.
[2019-06-19] MEDS: Morphine INJ* 2 MG/ML 1 ML SYRINGE (TWO MG - NEW SYRINGE VERSION) IV PRN (16:54)
--- NOTE | 2019-06-19 18:52 | PN ---
Progress Note - Progress Note Date of Service: 06/19/19 SOAP: Subjective: []Improved, minimal air leak. Pain is controlled. Breathing near baseline. Anxious to go home. Acetaminophen (Tylenol Tab*) 487.5 mg PO Q6H PRN PRN Reason: PAIN - MILD Last Admin: 06/17/19 12:18 Dose: 487.5 mg Albuterol (Ventolin Hfa Inhaler*) 2 puff INH Q4H PRN PRN Reason: SHORTNESS OF BREATH Last Admin: 06/19/19 08:05 Dose: 2 puff Aspirin (Aspirin Ec Tab*) 81 mg PO QAM [facility] Last Admin: 06/19/19 08:04 Dose: 81 mg Bisacodyl (Dulcolax Supp*) 10 mg [place] DAILY PRN PRN Reason: CONSTIPATION Buprenorphine (Butrans 15 Mcg Patch(Nf)) 15 mcg [place] [facility] [place] Cetirizine HCl (Zyrtec*) 10 mg PO DAILY [facility] Last Admin: 06/19/19 08:05 Dose: 10 mg Digoxin (Lanoxin Tab*) 0.25 mg PO DAILY [facility] Last Admin: 06/19/19 08:04 Dose: 0.25 mg Diltiazem HCl (Cardizem Tab*) 30 mg PO BID [facility] Last Admin: 06/19/19 08:05 Dose: 30 mg Diphenhydramine HCl (Benadryl Po*) 25 mg PO Q6H PRN PRN Reason: ITCHING Last Admin: 06/18/19 21:00 Dose: 25 mg Guaifenesin (Mucinex*) 600 mg PO EVERY OTHER DAY [facility] Last Admin: 06/19/19 08:05 Dose: 600 mg Ketorolac Tromethamine (Toradol Inj*) 15 mg IV PUSH Q6H PRN PRN Reason: PAIN - MILD Last Admin: 06/19/19 08:06 Dose: 15 mg Magnesium Hydroxide (Milk Of Magnesia Liq*) 30 ml PO BID PRN PRN Reason: CONSTIPATION Last Admin: 06/16/19 18:48 Dose: 30 ml Morphine Sulfate (Morphine Inj (Syringe))*) 2 mg IV Q4H PRN PRN Reason: PAIN - MILD Last Admin: 06/19/19 16:54 Dose: 2 mg Nicotine (Nicotine Patch 21 Mg/24 Hr*) 1 patch TRANSDERM DAILY@0800 [facility] Last Admin: 06/19/19 08:06 Dose: 1 patch Nicotine Polacrilex (Nicotine Gum*) 4 mg PO Q2H PRN PRN Reason: CRAVING Last Admin: 06/16/19 22:09 Dose: 4 mg Nystatin (Nystatin Suspension*) 500,000 units PO DAILY [facility] Last Admin: 06/19/19 07:45 Dose: Not Given Oxycodone/Acetaminophen (Percocet 5/325 Tab*) 1 tab PO Q4H PRN PRN Reason: PAIN Last Admin: 06/19/19 16:51 Dose: 1 tab Pharmacy Profile Note (Nicotine Patch Removal Note*) 1 note PATCH OFF 2100 [facility] Last Admin: 06/18/19 21:07 Dose: 1 note Polyethylene Glycol/Electrolytes (Miralax (17 Gm Dose [place])) 17 gm PO DAILY PRN PRN Reason: CONSTIPATION Last Admin: 06/17/19 22:21 Dose: 17 gm Ropinirole HCl (Requip Tab*) 0.25 mg PO BEDTIME [facility] Last Admin: 06/18/19 21:01 Dose: 0.25 mg Tiotropium [place] (Spiriva Respimat 2.5 Mcg) 2 puff INH QAM [facility] Last Admin: 06/19/19 08:05 Dose: 2 puff Trazodone HCl (Desyrel Tab*) 50 mg PO BEDTIME [facility] Last Admin: 06/18/19 22:14 Dose: 50 mg Zolpidem Tartrate (Ambien Tab*) 10 mg PO BEDTIME PRN PRN Reason: SLEEP Last Admin: 06/18/19 22:14 Dose: 10 mg Objective: [] Vital Signs Temp Pulse Resp BP Pulse Ox 98.8 F 92 16 114/74 100 06/19/19 15:26 06/19/19 15:26 06/19/19 17:54 06/19/19 15:26 06/19/19 15:26 HEENT: OM moist Good BS BL, chest tube in place RRR s1s2 +BS NT ND Ext w/o edema + clubbing Assessment: []Case d/w surgery and likely discharge next 24-48 hrs. Will clamp chest tube today. Biopsy of lung lesion negative, will still need close follow up. Plan: []1. Will plan RTC to clinic one week from discharge. 2. Plan repeat CT in 3 months.
--- NOTE | 2019-06-19 19:04 | PN ---
Progress Note - Progress Note Date of Service: 06/19/19 Note: Surgery Progress: No airleak from chest tube and patient has been w/o any change in sx. Her chest xray on water seal looked good. Chest tube was therefore removed at ~ 1730 w/o incident. Thereafter, patient began to drain copious serous fluid, leaking under the initial dressing and at least one subsequent reinforcement. The subsequent xray looks good to my view, but has not officially been read by the radiologist. I am awaiting a review of the xray by Dr. Henriquez, but leaning toward discharge home, with patient understanding of indications to call and return to the hospital: increasing SOB, pain, or sc air.
[2019-06-19 19:13] VITALS: BP 129/76
--- NOTE | 2019-06-19 21:30 | DS ---
CC: Dr. Jae Jones; [facility], RPA-C * DISCHARGE SUMMARY: DATE OF ADMISSION: 06/14/19 DATE OF DISCHARGE: 06/19/19 ATTENDING SURGEON: Bertha Henriquez MD. * (DICTATED BY SANDRA QUINTANILLA) HOSPITAL COURSE: Please refer to recent admission history and physical as well as updated history and physical note from 06/14/19, as well as procedure note from 06/14/19. Briefly, the patient had undergone prior left lung biopsy which resulted in pneumothorax. This was treated initially with a small caliber chest tube with apparent resolution. The tube had been removed earlier in the day on 06/14/19 and the patient was discharged. She then subsequently returned to the ED with increasing shortness of breath and significant increase in subcutaneous emphysema. Chest x-ray showed recurrent pneumothorax, and it was decided that a larger bore chest tube was needed. This was placed by Dr. Altamirano in the ED on 06/14/19 (28 [place] thoracostomy tube). The patient had persistent air leak the next couple of days; however, on 06/18/19, the air leak seemed to have stopped and her chest x- ray was stable. A repeat chest x-ray the morning of 06/19/19 showed a small residual left pneumothorax. There was no evidence on exam of air leak or increased subcutaneous air. The chest tube was therefore removed without initial incident. However, subsequently she did have copious serous drainage from under the initial dressing. This was subsequently reinforced multiple times and ultimately ABD pads were placed with Dimas wrap. During this period of 1-1/2 hours after chest tube removal, there was no increase in shortness of breath, chest pain, or subcutaneous emphysema. The repeat chest x-ray post tube removal appeared to be stable, pending official radiologist reading. The patient was desirous of being discharged home and wound care instructions were reviewed. She will leave the initial base dressing in place for 72 hours and change reinforcement dressings as needed depending on fluid drainage. She will also contact our office for followup for suture removal in approximately 1 week. She was also instructed to call our office and plan to return to the ED if she has any significant increase in shortness of breath, chest pain, or increased subcutaneous air. She understands all of these directives and is discharged to home in good condition. DELIA R[place]A, [place] [id number]/[facility] #: [id number] PAM
[2019-06-20] MEDS ORDERED: Buprenorphine 15 MCG PATCH(NF) 15 MCG/HR PATCH (15 MG TOTAL) TRANSDERM SCH (19:00)
== END 2019-06-19 19:40 | disposition home or self-care (01) | DRG 920 ==
LOC: ED 18:02 → SSU 20:19
PROVIDERS: ADMIT Surgery; ATTEND Surgery
PROC: 0W9B00Z Drainage of Left Pleural Cavity with Drainage Device, Open Approach (ICD-10-PCS; principal; 2019-06-14)
DX: T81.82XA Emphysema (subcutaneous) resulting from a procedure, initial encounter (principal); J95.811 Postprocedural pneumothorax; L25.9 Unspecified contact dermatitis, unspecified cause; J30.2 Other seasonal allergic rhinitis; Z88.1 Allergy status to other antibiotic agents; Z88.2 Allergy status to sulfonamides; Z88.8 Allergy status to other drugs, medicaments and biological substances; X58.XXXA Exposure to other specified factors, initial encounter
CPT/HCPCS: 71045; 71046; 99232; 99284; A9270-GY; J1885; J2270; J3535

== ENCOUNTER 2019-07-18 10:17 | Day surgery (SDC) | payer MEDICARE, BC ==
[~2019-07-18 10:17] MED LIST changes: -KETAMINE HCL* 50 MG/ML 10 ML VIAL ONE; -Levalbuterol 1.25MG/0.5ML NEB ONE; -Midazolam* 1 MG/ML 2 ML VIAL (2 MG) ONE; -Midazolam* 1 MG/ML 5 ML VIAL (5 MG) ONE; -Propofol* 10 MG/ML 20 ML BTL ONE; -fentaNYL* 50 MCG/ML 2 ML VIAL (100 MCG VIAL) ONE
[2019-07-18] MEDS ORDERED: Midazolam concentrated* 5 MG/ML 1 ml VIAL ONE (12:15)
[2019-07-18] MEDS ORDERED: Midazolam* 1 MG/ML 2 ML VIAL (2 MG) ONE ×2 (12:24→12:41)
[2019-07-18] MEDS ORDERED: KETAMINE HCL* 50 MG/ML 10 ML VIAL ONE (12:24)
[2019-07-18] MEDS ORDERED: Ondansetron INJ* 2 MG/ML VIAL ONE (12:27)
[2019-07-18] MEDS ORDERED: Lidocaine 2% PF * 5 ML VIAL ONE (12:27)
[2019-07-18] MEDS ORDERED: Propofol* 10 MG/ML 20 ML BTL ONE (12:27)
[2019-07-18] MEDS ORDERED: Acetaminophen TAB* 325 MG PO PRN (14:00)
[2019-07-18 14:13] VITALS: BP 106/83
--- NOTE | 2019-07-19 06:27 | PRO ---
DATE: 07/18/19 - [facility] REFERRING PRACTITIONER: Martínez Milian, RPA-C, [place] , [place] * PROCEDURE: Upper gastrointestinal endoscopy and balloon dilation, esophageal narrowing at 28 to 31 and 20 to 23, 4 atmospheres each. INDICATION: This 59-year-old woman treated for lung cancer with definitive radiation is subject to recurring dysphagia and has gotten relief from dilations. She is still smoking and does have a left lung suspicious mass. There was a pneumothorax with a biopsy a couple of months back. She has not had any respiratory infectious signs in recent weeks. ENDOSCOPIST: Dr. Fountain. MEDICATIONS: Monitored anesthesia per Dr Delcid FINDINGS: She is a chronically-appearing slender woman, in no overt distress. She actually looks better than she has in more than a year. She was positioned left side down and monitored anesthesia administered. EGD: Larynx - narrow. Esophagus - easily entered and the mucosa appears somewhat pale and scarred with a patchy atrophy. Some minimal neovascularization seems to sonny narrowed areas at 19 to 20 cm and 28 to 30. The scopes passed through easily. There are no areas of exudate or erosion or ulceration. EG junction at 39 is patent. Stomach - a mild generalized erythema, but no bleeding and no overt erosions. The antrum appears normal. Duodenum - the bulb has a mild erythema, but no ulceration. The sweep through to the third portion of the duodenum is restricted and there is a tight curve that eventually kept deflection cease through the third portion. It is somewhat difficult. The scope was then withdrawn through the esophagus and dilations were done at 28 to 33 and 18 to 23. There was no overt split achieved with 1 atmosphere and then a small series of superficial splits with 3 atmospheres and just slightly extended splits with 4 atmospheres. There were multiple splits as desired with none being deep. The patient tolerated this well. IMPRESSION: 1. Gastric erythema. 2. Duodenal restriction. 3. Esophageal stricture at 2 levels dilated as before and hopefully palliation from dysphagia will again be achieved. [id number]/[facility] #: [id number] [facility]
== END 2019-07-18 14:10 | disposition home or self-care (01) ==
LOC: OR 10:17
PROVIDERS: ATTEND Internal Medicine Gastroenterology
DX: K22.2 Esophageal obstruction (principal); R13.10 Dysphagia, unspecified; K29.70 Gastritis, unspecified, without bleeding; R91.8 Other nonspecific abnormal finding of lung field; J95.811 Postprocedural pneumothorax; F17.210 Nicotine dependence, cigarettes, uncomplicated; Z79.899 Other long term (current) drug therapy; Z99.81 Dependence on supplemental oxygen; Z79.82 Long term (current) use of aspirin; Z79.51 Long term (current) use of inhaled steroids; Z85.118 Personal history of other malignant neoplasm of bronchus and lung; Z88.2 Allergy status to sulfonamides
CPT/HCPCS: 71046; J2250; J2405; J2704

== ENCOUNTER 2024-04-21 14:52 | Inpatient (IN) ==
[2024-04-21] MEDS: NS 0.9% 1000 ml BAG 1,000 ML IV ONE (15:27)
[2024-04-21 15:39] LABS: INR 1.27 (0.85-1.14)
[2024-04-21 15:59] LABS: Albumin 2.6 g/dL (3.2-5.2); Albumin/Globulin Ratio 0.9 (1-3); Calcium 8.3 mg/dL (8.6-10.3); Creatinine, Serum 0.3 mg/dL (0.51-0.95); Globulin 2.8 g/dL (2-4); Potassium 4.1 mmol/L (3.5-5.0); Total Bilirubin 0.7 mg/dL (0.2-1.0); Total Protein 5.4 g/dL (6.4-8.9); eGFR CKD-EPI 120.6 (>60)
[2024-04-21 16:20] LABS: Hematocrit 38.7 % (35-45); Hemoglobin 13.5 g/dL (11.5-14.3); Mean Corpuscular Hgb Conc 34.8 g/dL (31-36); Mean Corpuscular Volume 109.2 fL (80-97); Mean Platelet Volume 6.9 fL (7.5-11.2); Platelet Count 463 10^3/uL (150-450); Red Blood Count 3.55 10^6/uL (3.63-4.92); White Blood Count 17.2 10^3/uL (3.8-11.8)
[2024-04-21] MEDS: Iohexol 350 (CONTRAST) 500 ML MDV IV ONE (16:25)
[2024-04-21 16:57] LABS: ABS Eosinophils 0.1 10^3/uL (0.0-0.5); ABS Lymphocytes 0.3 10^3/uL (1.0-4.8); ABS Monocytes 0.5 10^3/uL (0.0-0.9); ABS Neutrophils 16.3 10^3/uL (1.5-7.6); Anisocytosis 1+; Eosinophil % 0.6 %; Lymphocyte % 1.7 %; Macrocytosis 1+
[2024-04-21 17:15] LABS: High Sensitivity Troponin 1 Hr 5 pg/mL (<15)
[2024-04-21] MEDS: Piperacillin/Tazobac 3.375 BAG 3.375 GM/100 ML BAG IV ONE (17:40)
[2024-04-21 17:51] LABS: Magnesium 1.3 mg/dL (1.9-2.7)
[2024-04-21] MEDS ORDERED: Polyethylene Glycol 3350 17 GM PACKET PO PRN (18:25)
[2024-04-21] MEDS ORDERED: Vancomycin per Pharmacy 1 EA NOTE FOLLOW UP SCH (19:00)
[2024-04-21] MEDS ORDERED: Zosyn per Pharmacy NOTE FOLLOW UP SCH (19:00)
[2024-04-21] MEDS: Sodium Chloride 3% HYPERTONIC 120 ML IV ONE (19:26)
[2024-04-21] MEDS: Enoxaparin 40 MG/0.4 ML SYR SUBCUT SCH (21:07)
[2024-04-21] MEDS: Magnesium Sulf 4 GM/100 ML IV 4,000 MG/100 ML BAG IVPB ONE (21:09)
[2024-04-21 21:14] LABS: Urine Appearance Clear; Urine Bacteria Absent /HPF (Absent); Urine Bilirubin Negative (Negative); Urine Blood Trace (Negative); Urine Color Light-Yellow; Urine Glucose Negative (Negative); Urine Ketones Negative (Negative); Urine Nitrite Negative (Negative); Urine Protein Trace (Negative); Urine Red Blood Cell 1+(3-5/hpf) /HPF (0-Trace); Urine Specific Gravity >1.050 (1.002-1.030); Urine Squamous Epithelial Cell Present /HPF (Absent); Urine Urobilinogen 1+ (Negative); Urine White Blood Cell Trace(0-5/hpf) /HPF (0-Trace); Urine pH 7.5 (5.0-8.0)
[2024-04-21] MEDS: Vancomycin 1,000 MG in NS 0.9% 250 ml 250 ML IVPB ONE (21:18)
[2024-04-21 21:39] LABS: Urine Osmo 379 mOsm/kg (150-1150)
[2024-04-21 21:53] LABS: TSH Ultra Thyroid Stim Horm 3.9 mcIU/mL (0.34-5.60)
[2024-04-21 22:29] LABS: Osmolality Serum 265 mOsm/kg (275-295)
[2024-04-21] MEDS: Piperacillin/Tazobac 3.375 BAG 3.375 GM/100 ML BAG IV SCH (22:55)
[2024-04-22 04:55] LABS: Hematocrit 34.1 % (35-45); Hemoglobin 11.9 g/dL (11.5-14.3); Mean Corpuscular Hemoglobin 38.7 pg (27-33); Mean Corpuscular Volume 110.4 fL (80-97); Mean Platelet Volume 6.6 fL (7.5-11.2); Platelet Count 404 10^3/uL (150-450); Red Blood Count 3.08 10^6/uL (3.63-4.92); White Blood Count 13.9 10^3/uL (3.8-11.8)
[2024-04-22 05:41] LABS: ALT 7 U/L (7-52); AST 14 U/L (13-39); Albumin 2.2 g/dL (3.2-5.2); Alkaline Phosphatase 94 U/L (35-149); Anion Gap 7 mmol/L (2-16); Blood Urea Nitrogen 5 mg/dL (6-24); CO2 Carbon Dioxide 29 mmol/L (22-32); Calcium 7.6 mg/dL (8.6-10.3); Chloride 90 mmol/L (101-111); Creatinine, Serum < 0.30 mg/dL (0.51-0.95); Direct Bilirubin 0.3 mg/dL (0.03-0.18); Globulin 2.2 g/dL (2-4); Glucose 91 mg/dL (70-100); Indirect Bilirubin 0.4 mg/dL (0.3-1.0); Phosphorus 4.5 mg/dL (2.5-5.0); Potassium 3.6 mmol/L (3.5-5.0); Sodium 126 mmol/L (135-145); Total Bilirubin 0.7 mg/dL (0.2-1.0); Total Protein 4.4 g/dL (6.4-8.9); eGFR CKD-EPI 119.9 (>60)
[2024-04-22] MEDS: Vancomycin 1000 MG in NS 0.9% 250 ML IVPB SCH (05:49)
[2024-04-22 06:13] LABS: ABS Eosinophils 0.1 10^3/uL (0.0-0.5); ABS Lymphocytes 0.3 10^3/uL (1.0-4.8); ABS Monocytes 0.5 10^3/uL (0.0-0.9); ABS Nucleated RBC 0.01 10^3/ul; Eosinophil % 0.4 %; Lymphocyte % 1.9 %; Nucleated Red Blood Cells % 0.1 %/100WBC (0.0-0.8)
[2024-04-22 10:05] LABS: Anion Gap 4 mmol/L (2-16); Blood Urea Nitrogen 5 mg/dL (6-24); CO2 Carbon Dioxide 28 mmol/L (22-32); Calcium 7.3 mg/dL (8.6-10.3); Chloride 93 mmol/L (101-111); Creatinine, Serum < 0.30 mg/dL (0.51-0.95); Glucose 78 mg/dL (70-100); Potassium 3.7 mmol/L (3.5-5.0); Sodium 125 mmol/L (135-145); eGFR CKD-EPI 119.9 (>60)
[2024-04-22] MEDS: Aspirin EC 81 mg TAB.EC (enteric coated) PO SCH (10:10)
[2024-04-22] MEDS: CMCS: FLUTICAS/UMECLI/VILANT 100-62.5-25 MDI (NF) INH SCH (11:00)
[2024-04-22] MEDS: Albuterol HFA INHALER 8 gm MDI INH SCH ×2 (11:00→15:13)
[2024-04-22] MEDS ORDERED: Vancomycin per Pharmacy 1 EA NOTE FOLLOW UP SCH (17:00)
[2024-04-22] MEDS: Vancomycin 1,000 MG in NS 0.9% 250 ml 250 ML IVPB ONE (18:04)
[2024-04-22] MEDS: BUPRENORPHINE TRANSDERM SCH (23:20)
[2024-04-23] MEDS: NS 0.9% 500 ml BAG 500 ML IV ONE ×2 (02:54→09:52)
[2024-04-23] MEDS: Vancomycin 750 MG in NS 0.9% 250 ML IVPB SCH (05:39)
[2024-04-23] MEDS ORDERED: Vancomycin Trough Check NOTE FOLLOW UP ONE (06:00)
[2024-04-23 06:41] LABS: Hematocrit 33.3 % (35-45); Hemoglobin 11.7 g/dL (11.5-14.3); Mean Corpuscular Hemoglobin 38.7 pg (27-33); Mean Corpuscular Hgb Conc 35.1 g/dL (31-36); Mean Corpuscular Volume 110.5 fL (80-97); Mean Platelet Volume 6.5 fL (7.5-11.2); Platelet Count 404 10^3/uL (150-450); Red Blood Count 3.01 10^6/uL (3.63-4.92); Red Cell Distribution Width 14.9 % (12-17); White Blood Count 16.4 10^3/uL (3.8-11.8)
[2024-04-23] MEDS: Buprenorph Patch Check Q Shift 1 NOTE MISC FOLLOW UP SCH (07:29)
[2024-04-23 07:36] LABS: ABS Lymphocytes 0.2 10^3/uL (1.0-4.8); ABS Monocytes 0.7 10^3/uL (0.0-0.9); ABS Neutrophils 15.5 10^3/uL (1.5-7.6); Lymphocyte % 1.2 %
[2024-04-23 07:38] LABS: Calcium 7.3 mg/dL (8.6-10.3); Creatinine, Serum 0.38 mg/dL (0.51-0.95); Magnesium 1.4 mg/dL (1.9-2.7); Potassium 3.5 mmol/L (3.5-5.0); eGFR CKD-EPI 113.2 (>60)
[2024-04-23] MEDS: Azithromycin 500 mg/250 ml NS 500 MG/250 ML BAG IVPB SCH (09:44)
[2024-04-23] MEDS: Magnesium Sulf 4 GM/100 ML IV 4,000 MG/100 ML BAG IVPB ONE (11:06)
[2024-04-23 15:04] LABS: Calcium 7.4 mg/dL (8.6-10.3); Creatinine, Serum 0.44 mg/dL (0.51-0.95); Potassium 3.2 mmol/L (3.5-5.0); eGFR CKD-EPI 109.3 (>60)
[2024-04-23] MEDS: Potassium Chloride LIQUID 20 MEQ/15 ML LIQUID PO ONE (15:24)
[2024-04-23] MEDS: KCL 20 MEQ/100 ML IVPREMIX 20 MEQ/100 ML BAG IV SCH (15:40)
[2024-04-24] MEDS: Albuterol HFA INHALER 8 gm MDI INH PRN (02:12)
[2024-04-24 05:41] LABS: Hematocrit 32.7 % (35-45); Hemoglobin 11.3 g/dL (11.5-14.3); Mean Corpuscular Hemoglobin 38.4 pg (27-33); Mean Corpuscular Hgb Conc 34.4 g/dL (31-36); Mean Corpuscular Volume 111.6 fL (80-97); Mean Platelet Volume 6.4 fL (7.5-11.2); Platelet Count 393 10^3/uL (150-450); Red Blood Count 2.93 10^6/uL (3.63-4.92)
[2024-04-24 06:57] LABS: Creatinine, Serum 0.43 mg/dL (0.51-0.95); Magnesium 1.8 mg/dL (1.9-2.7); Vancomycin Trough 13.5 mcg/mL; eGFR CKD-EPI 109.9 (>60)
[2024-04-24] MEDS: Vancomycin Trough Check NOTE FOLLOW UP ONE (07:32)
[2024-04-24] MEDS: Magnesium Sulfate 2 gm BAG 2 GM/50 ML BAG IVPB ONE (07:56)
[2024-04-24] MEDS ORDERED: BUPRENORPHINE TRANSDERM SCH (09:00)
[2024-04-24 12:00] LABS: Calcium 7.2 mg/dL (8.6-10.3); Potassium 4.3 mmol/L (3.5-5.0)
[2024-04-25] MEDS ORDERED: Albuterol/Ipratropium NEB.SOL (2.5/0.5 MG) 3 ML NEB.SOLN INH PRN (08:52)
[2024-04-25 16:05] LABS: Calcium 7.7 mg/dL (8.6-10.3); Creatinine, Serum 0.39 mg/dL (0.51-0.95); Magnesium 1.5 mg/dL (1.9-2.7); Potassium 3.7 mmol/L (3.5-5.0); eGFR CKD-EPI 112.5 (>60)
[2024-04-25 16:27] LABS: Hematocrit 33.4 % (35-45); Hemoglobin 11.4 g/dL (11.5-14.3); Mean Corpuscular Hemoglobin 37.9 pg (27-33); Mean Corpuscular Volume 111.4 fL (80-97); Mean Platelet Volume 6.3 fL (7.5-11.2); Platelet Count 447 10^3/uL (150-450); Red Cell Distribution Width 15.1 % (12-17); White Blood Count 13.7 10^3/uL (3.8-11.8)
[2024-04-25] MEDS: Magnesium Sulf 4 GM/100 ML IV 4,000 MG/100 ML BAG IVPB ONE (17:10)
[2024-04-25] MEDS: KCL 20 MEQ/100 ML IVPREMIX 20 MEQ/100 ML BAG IV ONE (21:23)
[2024-04-26] MEDS ORDERED: Albuterol/Ipratropium NEB.SOL (2.5/0.5 MG) 3 ML NEB.SOLN INH PRN (05:13)
[2024-04-26] MEDS ORDERED: Vancomycin Trough Check NOTE FOLLOW UP ONE (05:30)
[2024-04-26 06:54] LABS: Creatinine, Serum 0.4 mg/dL (0.51-0.95); eGFR CKD-EPI 111.8 (>60)
[2024-04-26 09:25] LABS: Calcium 7.7 mg/dL (8.6-10.3); Magnesium 1.9 mg/dL (1.9-2.7); Potassium 3.9 mmol/L (3.5-5.0)
[2024-04-26 15:32] LABS: Cryptococcus Antigen w/Titer Negative (Negative)
[2024-04-26] MEDS ORDERED: Propofol 10 MG/ML 20 ML BTL ONE ×2 (15:41→16:14)
[2024-04-26] MEDS ORDERED: Benzocaine/Butamben/Tetracain (CETACAINE - SINGLE USE) 5 gm TOPICAL ONE (16:10)
[2024-04-26] MEDS ORDERED: Levalbuterol 0.63MG/3ML NEB UNIT OF USE INH PRN (16:10)
[2024-04-26] MEDS ORDERED: Naloxone 0.4 mg VIAL 0.4 mg/ml 1 ml VIAL IV PRN (16:10)
[2024-04-26] MEDS ORDERED: fentaNYL 100 mcg/2 ml 50 MCG/ML VIAL ONE (16:13)
[2024-04-26] MEDS ORDERED: Lidocaine 2% PF 5 ML VIAL ONE (16:13)
[2024-04-26] MEDS ORDERED: Succinylcholine 200 mg VIAL 20 mg/ml 10 ml VIAL (200 mg) ONE (16:16)
[2024-04-26] MEDS ORDERED: Midazolam 2 mg/2 ml VIAL 1 mg/ml 2 ml VIAL (2 mg) ONE (16:17)
[2024-04-26] MEDS ORDERED: Levalbuterol 0.63MG/3ML NEB UNIT OF USE INH ONE (16:20)
[2024-04-26] MEDS ORDERED: Lidocaine 1% VIAL 10 MG/ML 30 ML VIAL ONE (16:40)
[2024-04-26] MEDS ORDERED: Ondansetron 4 mg VIAL 2 MG/ML 2 ml VIAL ONE (16:54)
[2024-04-26] MEDS ORDERED: Dexamethasone IV 4 MG/ML VIAL 1 ml VIAL ONE (16:54)
[2024-04-27 06:45] LABS: Hematocrit 34.2 % (35-45); Mean Corpuscular Hgb Conc 35.2 g/dL (31-36); Mean Platelet Volume 6.4 fL (7.5-11.2); Platelet Count 448 10^3/uL (150-450); Red Blood Count 3.08 10^6/uL (3.63-4.92); Red Cell Distribution Width 15.4 % (12-17); White Blood Count 8.8 10^3/uL (3.8-11.8)
[2024-04-27 07:02] LABS: Calcium 7.7 mg/dL (8.6-10.3); Creatinine, Serum 0.42 mg/dL (0.51-0.95); Potassium 4.4 mmol/L (3.5-5.0); eGFR CKD-EPI 110.5 (>60)
[2024-04-27] MEDS: Calcium Citrate 200 mg TAB PO SCH (08:22)
[2024-04-27 15:43] LABS: Aspergillus (Galactomannan) Ag <0.500 index (<0.5)
[2024-04-28 06:02] LABS: Hematocrit 32.3 % (35-45); Hemoglobin 11.4 g/dL (11.5-14.3); Mean Corpuscular Hemoglobin 38.7 pg (27-33); Mean Corpuscular Hgb Conc 35.2 g/dL (31-36); Mean Corpuscular Volume 110.1 fL (80-97); Mean Platelet Volume 6.4 fL (7.5-11.2); Platelet Count 486 10^3/uL (150-450); Red Blood Count 2.94 10^6/uL (3.63-4.92); Red Cell Distribution Width 15.1 % (12-17); White Blood Count 10.7 10^3/uL (3.8-11.8)
[2024-04-28 06:22] LABS: Calcium 8.1 mg/dL (8.6-10.3); Creatinine, Serum 0.5 mg/dL (0.51-0.95); Magnesium 1.4 mg/dL (1.9-2.7); Potassium 3.9 mmol/L (3.5-5.0)
[2024-04-28] MEDS: Magnesium Sulf 4 GM/100 ML IV 4,000 MG/100 ML BAG IVPB ONE (08:16)
[2024-04-28 14:04] VITALS: BP 103/72
== END 2024-04-28 16:30 | disposition home or self-care (01) | DRG 643 ==
LOC: ED 14:52 → EDHOLD 17:31 → ICU 18:03 → MED 18:21
PROVIDERS: ADMIT Internal Medicine Pulmonary Disease; ATTEND Internal Medicine Pulmonary Disease